=== PATIENT | female | born 1960 | race African-American/Black ===

== ENCOUNTER 2023-05-06 08:00 | Emergency (ER) | payer OTHER, SELFPAY ==
[2023-05-06 08:11] VITALS: BP 150/82; PULSE 90; RESP 18; TEMP 36.8; O2SAT 100; BMI 45.9
--- NOTE | 2023-05-06 08:36 | ED.EXTPRO1 ---
HPI - Extremity Problem General Chief complaint: Extremity Problem, Nontraumatic Stated complaint: Lower Pain Time Seen by Provider: 05/06/23 08:16 Source: patient Mode of arrival: walk-in Limitations: no limitations History of Present Illness HPI Narrative: Patient is here for evaluation of right ankle foot and leg pain. She is currently under the care of a rn clinical appeals in [facility]. She was advised to initiate a Medrol dose pack earlier this week but has not done so. She wanted make sure her leg was okay. She has had rheumatoid arthritis for at least 10 years. She had been doing very good but one of the Biologics she was taking was causing some problems with her kidney so the kidney doctor advised her to DC that arthritis medication since that time now she has been having more flareups in both her hands and her feet. There is no new trauma or injury. She is not running a fever. She has no circulatory compromise that she is aware of she has not had previous DVT. The pain is primarily over her medial longitudinal arch of her right foot and then a little bit in her hands and sometimes in her back when she walks a lot. Otherwise there is no new complaint chest pain or difficulty breathing. She could not really explain why she did not initiate the steroids at the recommendation of her physician who advised them. Related Data Allergies Allergy/AdvReac Type Severity Reaction Status Date / Time Sulfa (Sulfonamide Allergy Unknown Verified 05/06/23 08:11 Antibiotics) Exam Narrative Exam Narrative: Awake alert very pleasant oriented x 3 cognition is normal vital signs are stable slight elevation of her blood pressure. Problem focused examination Examination of her right lower leg shows no evidence of ropiness swelling or phlebitis. Strong pulses are noted. Her discomfort is over the medial longitudinal arch where she has a [id number] pain patch at this time. Capillary fill is good. The ankle joint itself is not really swollen or tender. She does not have any pain in her knee joint. The skin and integument are normal with no cyanosis petechiae or purpura. Constitutional Vital Signs, click to edit/add: Last Vital Signs Temp 98.2 F 05/06/23 08:11 Pulse 90 05/06/23 08:11 Resp 18 05/06/23 08:11 BP 150/82 H 05/06/23 08:11 Pulse Ox 100 05/06/23 08:11 O2 Del Method Room Air 05/06/23 08:11 Course Vital Signs Vital signs: Vital Signs Temperature 98.2 F 05/06/23 08:11 Pulse Rate 90 05/06/23 08:11 Respiratory Rate 18 05/06/23 08:11 Blood Pressure 150/82 H 05/06/23 08:11 Pulse Oximetry 100 05/06/23 08:11 Oxygen Delivery Method Room Air 05/06/23 08:11 Temperature 98.2 F 05/06/23 08:11 Pulse Rate 90 05/06/23 08:11 Respiratory Rate 18 05/06/23 08:11 Blood Pressure 150/82 H 05/06/23 08:11 Pulse Oximetry 100 05/06/23 08:11 Oxygen Delivery Method Room Air 05/06/23 08:11 MDM - Extremity (Nontraumatic) MDM Narrative Medical decision making narrative: This patient is a nondiabetic under the care of both her primary care doctor and rn clinical appeals which she has been in contact with very recently. She also sees a cable layer and they are trying to coordinate her care to manage her rheumatoid arthritis. I encouraged her to initiate the medication that the previous doctor's advice. She is requesting something for pain I told her that we could use something for nighttime pain only on a very limited basis. Discharge Plan Discharge Chief Complaint: Extremity Problem, Nontraumatic Clinical Impression: Polyarthritis Patient Disposition: Home, Self-Care Time of Disposition Decision: 08:40 Additional Instructions: Start the steroids immediately. May use Platina at nighttime for pain only. Follow-up with your rn clinical appeals as needed Stand Alone Forms: Portal Instructions Referrals: GERRY OCONNOR [Primary Care Provider] - 1 week
== END 2023-05-06 08:47 | disposition home or self-care (01) ==
PROVIDERS: Emergency Provider Emergency Medicine Emergency Medical Services
DX: M25.50 Pain in unspecified joint (principal); M06.9 Rheumatoid arthritis, unspecified
CPT/HCPCS: 99283

== ENCOUNTER 2025-03-05 22:52 | Emergency (ER) | payer OTHER, SELFPAY ==
--- OUTSIDE RECORDS SUMMARY | 2024-10-24 06:00 | XMS_ITS ---
Author Organization [facility] Address [address] [place], [place] [id number] Care Team Providers Care Primary Care Sales Representative Name Role Phone Thalia Escalante Primary Care Provider Ana Maria Omer Unavailable [phone] REASON FOR VISIT HTN, Afib Social History Sex Assigned At : Social History Observation Description Sex Assigned At Female Encounters Encounter Location Date Provider Diagnosis East [address] [place] [id number] 10/24 Ana Maria Omer Plan Of Treatment Next Appt Details Provider Name:Thalia diallo, 04/10/2025 08:45:00 AM, [address] [place] [address], [phone], Provider Name:Jillian diallo, 07/15/2025 08:45:00 AM, [address] [place] [address], [phone], Progress Notes * Anne Marie TURNER CDOB:[birth year] (64 yo F)Acc No.[id number]:10/24/2024 Medical Note Patient: Sandy Anne Marie wood :Rios OmerDOB:1960???Age:64 Y???Sex:Female Date:10/24/2024Phone:[phone]:[address], [place], [id number]:Thalia Escalante Subjective: * Chief Complaints: * H TN, Afib * Electronic signature of ARIS Nina on 03/06/2025 at 12:55 AM ESTSign off status: Pending * Provider: Meredith Omer Date: 0 10/24/2024 Generated for Printing/Faxing/eTransmitting on:?03/06/2025 12:55 AM EST
--- OUTSIDE RECORDS SUMMARY | 2025-02-20 14:00 | XMS_ITS | Encounter Summary ---
Author Organization [facility] Address [address] [place] [address] Care Team Providers Care Edging Supervisor Name Role Phone Escalante, Thalia SALAS-MARC Unavailable [phone] Reason for Visit * ReasonCommentsFoot SwellingPT presents today for swelling in BLLE, she states another dr told her poor blood circulation and numbness and tingling. Daughter is present today. Has been ongoing since July, she believes it is fromthe oral FurosemideSS: 11 * Consultation (Routine) - ClosedSpecialtyDiagnoses / ProceduresReferred By ContactReferred To ContactPodiatry Diagnoses Localized edema Procedures [facility] Thalia Escalante APRN-CNP fax: Mylene Zepeda DPM [address] [place] [address] Phone: tel: fax: Referral IDStatusReasonStart DateExpiration DateVisits RequestedVisits [id number] Specialty Services Required / Encounter Details DateTypeDepartmentCare Team (Latest Contact Info)Elowujrulxo55/11/2025 2:00 PM ESTOffice Visit [facility] [address] [place] [phone] Mylene Zepeda DPM [address] [place], [place] [phone] Venous insufficiency of lower extremity (Primary Dx); Peripheral autonomic neuropathy of unknown cause; Pain in both feet; Onychomycosis Social History Tobacco UseTypesPacks/DayYears UsedDateSmoking Tobacco: NeverSmokeless Tobacco: Never Tobacco Cessation:Counseling Given: Not Answered CommentsUnknownSex and Gender InformationValueDate RecordedSex Assigned at BirthNot on fileLegal QjcVtzvrs36/15/2023 6:44 PM EDTGender IdentityNot on fileSexual OrientationNot on filedocumented as of this encounter Last Filed Vital Signs Vital SignReadingTime TakenCommentsBlood Pressure--Pulse--Temperature-- Respiratory Rate--Oxygen Saturation--Inhaled Oxygen Concentration--Udcgjq626 kg (298 lb)02/20/2025 2:21 PM EACQfjjlw109.2 cm (5' 7 )02/20/2025 2:21 PM ESTBody Mass Index46.6702/20/2025 2:21 PM ESTdocumented in this encounter Progress Notes * Mylene Zepeda DPM - 02/20/2025 2:00 PM EST Images from the original note were not included. Subjective Patient ID: Anne Marie Turner is a 64 y.o. female who presents for Foot Swelling (PT presents todayfor swelling in BLLE, she states another dr told her poor blood circulation and numbness and tingling. Daughter is present today. Has been ongoing since July, she believes it is from the oral Furosemide/SS: 11). HPI Patient presents with her daughter with multiple complaints of the lower extremity. She states she has noticed significant swelling starting in the lower extremity in May, shortly after starting furosemide. She was told to elevate and use compression stockings. She has not noticed much improvement with this. The compression stockings are painful for her. She discontinued the furosemide recentlybut has not seen any significant improvement in the swelling. She also reports pins and needles type of sensation in bilateral lower extremity that started in December. She is concerned poor circulation is causing this. The pins and needle sensation is getting in the way of her regular activity and sleeping. She states she takes multiple medications and is unsure if she would like to start a new medication at this time. Review of Systems Medications Current Medications[1] Allergies Macrolides and ketolides, Sulfa antibiotics, Tamiflu [oseltamivir], and Zithromax [azithromycin] Past Surgical History Surgical History[2] Family History Family History[3] Objective Physical Exam Cardiovascular: Comments: Pedal pulses: DP 2/4 bilateral, PT 2/4 bilateral. Skin temp is warm to warm. Varicosities: absent Hair growth: sparse Mild non pitting edema noted b/l Pulmonary: Effort: Pulmonary effort is normal. Musculoskeletal: General: No tenderness. Right lower leg: Edema present. Left lower leg: Edema present. Comments: ROM: AJ and STJ ROM are normal and pain free. MUSCLE STRENGTH: 5/5 for dorsiflexion, plantarflexion, inversion, eversion. PAIN: generalized pain due to neuropathy and swelling Skin: General: Skin is warm. Capillary Refill: Capillary refill takes 2 to 3 seconds. Findings: No bruising or erythema. Comments: SKIN FINDINGS: Skin is dry. Webspaces are clean and dry. Skin turgor diminished. NAIL PATHOLOGY: multiple nails are fungal Neurological: Mental Status: She is alert and oriented to person, place, and time. Comments: Light touch sensation intact Vibratory sensation: Absent IPJ bilaterally, diminished at medial malleolus and patella bilaterally Hamilton Emmanuel monofilament: absent at 10/10 sites bilaterally Psychiatric: Mood and Affect: Mood normal. Behavior: Behavior normal. Assessment/Plan ICD-10-CM 1. Venous insufficiency of lower extremity I87.2 2. Peripheral autonomic neuropathy of unknown cause G90.09 3. Pain in both feet M79.671 M79.672 4. Onychomycosis B35.1 Patient was examined and evaluated. Discussed the clinical findings with the patient and her daughter today. I assured her that her peripheral pulses were readily palpable, that she did not have arterial disease. Reviewed that the swelling she is having in bilateral lower extremities may be due to the medication but also could be due, in part, to venous insufficiency. Patient would like to see how she does after being off of the furosemide for a longer period of time. Discussed the findings of her neurologic exam and that the burning/tingling/numbness sensation may be idopathic neuropathy. Reviewed the common causes of peripheral neuropathy with her. Discussed that there is extensive lab work along with neuro referral and NCV testing that could be done to try todetermine a cause, but that 30-40% of pts with neuropathy, the cause remains unknown. Discussed treatment options of Lyrica vs Neurontin vs Metanx. Reviewed that with Lyrica, Neurontin, and Metanx, they should be taken for at least 90 days to determine effectiveness and Lyrica/Neurontin dose can be increased if needed. Also reviewed more alternative treatments such as CBD oil. Patient would like to try CBD oil 1st, information was dispensed on how to take this and where to obtain it. If she does not notice any improvement with the CBD oil, she would like to have Neurontin at home to try. We discussed starting her at the lowest dose possible and reviewing all of her medications with her pharm acist before she starts this to review possible negative side effects or interactions with other medications. ERX Neurontin 100mg TID If treatment with this is unsuccessful, option to try other medication or referral to neurologist. At the end of the appointment, pt's daughter asked if pt could have her nails trimmed. RTO March fornail care and follow up of neuropathy after CBD oil and possibly Neurontin. This note was created with the assistance of a speech recognition program. While intending to generate a timely document that accurately reflects the content of the visit, no guarantee can be provided that every grammatical or spelling mistake has been or will be identified or corrected. Thank you for your understanding. Mylene Zepeda DPM [1] Current Outpatient Medications: apixaban (Eliquis) 5 MG tablet, Take 5 mg by mouth in the morning and 5 mg before bedtime., Disp: ,Rfl: carvedilol (Coreg) 12.5 MG tablet, Take by mouth in the morning and in the evening. Take with meals., Disp: , Rfl: cetirizine (ZyrTEC) 10 MG tablet, Take by mouth, Disp: , Rfl: flecainide (Tambocor) 100 MG tablet, Take by mouth, Disp: , Rfl: fluticasone (Flonase) 50 MCG/ACT nasal spray, Administer 1 spray into each nostril Daily Shake gently. Before first use, prime pump. After use, clean tip and replace cap., Disp: , Rfl: folic acid (Folvite) 1 MG tablet, Take by mouth Daily, Disp: , Rfl: furosemide (Lasix) 40 MG tablet, Take by mouth, Disp: , Rfl: hydroxychloroquine (Plaquenil) 200 MG tablet, Take by mouth, Disp: , Rfl: lidocaine (Lidoderm) 5 % patch, Apply 1 patch topically Daily Remove & discard patch within 12 hours or as directed by MD., Disp: , Rfl: pantoprazole (ProtoNix) 40 MG EC tablet, Take 40 mg by mouth in the morning. Take before meals. Do not crush, chew, or split., Disp: , Rfl: [2] Past Surgical History: Procedure Laterality Date CT ANGIOGRAM HEART CORONARY 02/18/2019 CT ANGIOGRAM TAVR 02/18/2019 CT ANGIOGRAM HEART CORONARY 01/10/2019 CT ANGIOGRAM TAVR 01/10/2019 LEG SURGERY Right 12yo TONSILLECTOMY [3] Family History Problem Relation Name Age of Onset Heart disease Mother documented in this encounter Plan of Treatment DateTypeDepartmentCare Team (Latest Contact Info)Pdajrszchqo81/19/2026 9:30 AM EDTProcedure Visit [facility] [address] [place] [phone] Mylene Zepeda DPM [address] [place], [place] [phone] documented as of this encounter Visit Diagnoses Diagnosis Venous insufficiency of lower extremity- Primary Peripheral autonomic neuropathy of unknown cause Idiopathic peripheral autonomic neuropathy, unspecified Pain in both feet Onychomycosis Dermatophytosis of nail documented in this encounter Care Teams Team MemberRelationshipSpecialtyStart DateEnd Date Thalia Escalante APRN-SHOES SALESPERSON Nurse PractitionerFamily Vhkvhtph90/11/25documented as of this encounter
--- OUTSIDE RECORDS SUMMARY | 2025-02-27 10:30 | XMS_ITS ---
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 Name Role Phone Hanna Escalantegail Primary Care Provider Allergies Allergen (clinical drug ingredient) Drug/Non Drug Allergy documented on EMR Reaction Allergy Type Onset Date Status SEASONAL ALLERGIES (uncoded)UnknownAllergyActivesulfadiazinesulfADIAZINE Anaphylaxis , HivesDrug AllergyActiveoseltamivirTamifluAnaphylaxisDrug Allergy ActiveazithromycinZithromaxAnaphylaxisDrug AllergyActiveoseltamivirOseltamivir UnknownDrug AllergyActive REASON FOR VISIT cough Medications Medication SIG (Take, Route, Frequency, Duration) Notes Start Date End Date Status Amoxicillin-Pot Clavulanate 500-125 MG T ablet 1 tablet Orally every 12 hrs; Duration: 7 days 5ActiveMedical Compression Socks - Miscellaneousas jnnesnuv56/09/2025 ActiveFerrous Sulfate 325 (65 Fe) MG Tablet Delayed Release1 tablet Orally daily; Duration: 30 days5ActivePolyethylene Glycol 3350 17 GM/SCOOP Powder1 scoop mixed with 8 ounces of fluid Orally Once a day; Duration: 30 days ActiveEliquis 5 MG Tablet1 Tablet Oral twice daily; Duration: 90 daysActive Furosemide 20 MG Tablet1 tablet Orally Once a day; Duration: 30 daysActive guaiFENesin ER 600 MG Tablet Extended Release 12 Hour1 tablet as needed Orally every 12 hrs; Duration: 10 days5ActivePantoprazole Sodium 40 MG Tablet Delayed Release1 TABLET 1/2 TO 1 HOUR BEFORE MORNING MEAL ORALLY ONCE A DAY 90 DAYS Orally Once a day; Duration: 90 daysActiveCarvedilol 12.5 MG Tablet1 tablet with food Orally Twice a day; Duration: 90 daysActiveLeflunomide 20 MG Tablet1 tablet Orally Once a dayActiveLidocaine Pain Relief 4 % Patch1 patch as needed Externally Four times a dayActiveFlecainide Acetate 100 MG Tablet0.5 tablet Orally every 12 hrsActiveFolic Acid 1 MG TabletTAKE 1 TABLET BY MOUTH EVERY DAY FOR 30 DAYS; Duration: 90ActiveCetirizine HCl 10 MG TabletTAKE 1 TABLET BY MOUTH EVERY DAY FOR 90 DAYS; Duration: 30 daysActiveFluticasone Furoate 50 MCG/ACT Aerosol Powder Breath Activated1 puff Inhalation Once a dayfloventActiveMucinex 600 MG Tablet Extended Release 12 Hour1 tablet as needed Orally every 12 hrs; Duration: 14 days5ActivepredniSONE 20 MG Tablet1 tablet with food or milk Orally Once a day; Duration: 5 days5Active Social History Sex Assigned At : Social History Observation Description Sex Assigned At Female Social History Sexual History:Social InfoQuestionAnswerNotesFamily PlanningAre you or your partner planning on becoming in the next year if not already ? No Vital Signs Temperature 98.1 degrees Fahrenheit 02/28/20 25 Blood pressure systolic 187 mm Hg 02/28/20 25 Blood pressure diastolic 99 mm Hg 025 Heart Rate 88 /min 02/27/2025 Height 67 in 02/27/2025 Weight 289 lbs 02/27/2025 BMI 45.26 kg/m2 02/27/2025 Oximetry 93 % 02/27/2025 Height-cm 170.18 cm 02/27/2025 Weight-kg 131.09 kg 02/27/2025 Natasha Marie 02/27/2025 03:34:34 PM EST > Encounters Encounter Location Date Provider Diagnosis [address] [id number] 02/27/2025 Thalia Escalante Bronchitis J40 Assessments Encounter Date Diagnosis (ICD Code) Assessment Notes Treatment Notes Treatment Clinical Notes Section Notes 02/27/2025 Bronchitis (ICD-10 - J40) Decreased dose for kidney failure and decreased CrCl. Immunocompromised, will start antibiotic, take as prescribed Start prednisone and mucinex Discussed course/duration of illness, symptoms can last from 10-14 days. Patient encouraged to increase fluid intake, warm salt water gargles, cool moist mist. Drink plenty of water and rest when able. Advised to take Tylenol and/or Ibuprofen as needed Advised to wash hands often & disinfect surfaces. Discussed reassuring vs non reassuring signs related to infection and when to RTC or go to the ER. F/U PRN Plan Of Treatment Medication Medication Name Sig Start Date Stop Date Notes Amoxicillin-Pot Clavulanate 500-125 MG Tablet 1 tablet Orally every 12 hrs; Duration: 7 days 02/27/2025 Mucinex 600 MG Tablet Extended Release 12 Hour1 tablet as needed Orally every 12 hrs; Duration: 14 days02/27/2025predniSONE 20 MG Tablet1 tablet with food or milk Orally Once a day; Duration: 5 days02/27/2025Treatment Notes Assessment Notes Bronchitis Decreased dose for kidney failure and decreased CrCl. Immunocompromised, will start antibiotic, take as prescribed Start prednisone and mucinex Discussed course/duration of illness, symptoms can last from 10-14 days. Patient encouraged to increase fluid intake, warm salt water gargles, cool moist mist. Drink plenty of water and rest when able. Advised to take Tylenol and/or Ibuprofen as needed Advised to wash hands often & disinfect surfaces. Discussed reassuring vs non reassuring signs related to infection and when to RTC or go to the ER. F/U PRN Next Appt Details Follow Up: keep next appoint ment, Reason: Provider Name:Thalia diallo, 04/10/2025 08:45:00 AM, [address], [place], [phone], Provider Name:Jillian diallo, 07/15/2025 08:45:00 AM, [address] [place] [address], [phone], History and Physical Notes * HPI (History of Present Illness) CategorySub-CategoryDetailNotesCategory NotesInterim History A 64 year old non-productive cough, sore throat, runny nose, body aches, fatigue, left chest pain under ribs when coughing, started last week. Unsure of fevers. No history of asthma or COPD Has not taken anything at home. Patient is immunocompromised with decreased WBC. Examination CategorySub-CategoryDetailNotesCategory NotesGeneral ExaminationEars:both ears, tympanic membrane dull General appearance: alert, pleasant, well-nourished and in no acute distress. Head: normocephalic, atraumatic. Eyes: pupils equal, round, reactive to light. Heart: regular rate and rhythm without murmurs, gallops, clicks or rubs. Lungs: clear to auscultation bilaterally, with good air movement and no rales, rhonchi or wheezes. Psych: alert and oriented x 3, cooperative with exam, maintains good eye contact. Skin: No rashes. 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 Unsure of fevers. No history of asthma or COPD ?Has not taken anything at home. Patient is immunocompromised with decreased WBC. * ROS: ???Positive and negative as described above in the HPI. * Medical History: Allergic rhinitis Chronic kidney disease, stage III (moderate) COVID-19 virus GERD (gastroesophageal reflux disease) Hypertension Obesity Rheumatoid arthritis Mass of Mediastinum Medical History Verified? 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 * OB History: ??? History:?Total pregnancies:?5 ?Full-term pregnancies:?5 ?Pre-term pregnancies?0 ?Ectopic pregnancies:?0 ?AB Induced:?0 ?AB Spontaneous:?0 ?Total living children:?5 ?Multiple births:?0 * Surgical History: Right Leg Surgery ? Surgical History verified.? * Hospitalization/Major Diagno stic Procedure: pneumonia 2019? AFib 05/24/24? Hospitalization Verified.? * Family History: F ather: . M other: , diagnosed with Hypertension. P aternal Grand Father: . P aternal Grand Mother: . M aternal Grand Father: . M aternal Grand Mother: . B rother: alive, diagnosed with Hypertension. S ister: , HIV. 7 brother(s) , 2 sister(s) . . F amily History Verified.. * Social History: ???Sexual History:?Family Planning?Are you or your partner planning on becoming in the next year if not already ??No ???Social History Verified. * Medications: T akingFluticasone Furoate 50 MCG/ACT Aerosol Powder Breath Activated 1 puff Inhalation Once a day , Notes to Pharmacist: floventLeflunomide 20 MG Tablet 1 tablet Orally Once a day Flecainide Acetate 100 MG Tablet 0.5 tablet Orally every 12 hrs Lidocaine Pain Relief 4 % Patch 1 patch as needed Externally Four times a day Cetirizine HCl 10 MG Tablet TAKE 1 TABLET BY MOUTH EVERY DAY FOR 90 DAYS Folic Acid 1 MG Tablet TAKE 1 TABLET BY MOUTH EVERY DAY FOR 30 DAYS Carvedilol 12.5 MG Tablet 1 tablet with food Orally Twice a day Pantoprazole Sodium 40 MG Tablet Delayed Release 1 TABLET 1/2 TO 1 HOUR BEFORE MORNING MEAL ORALLY ONCE A DAY 90 DAYS Orally Once a day Furosemide 20 MG Tablet 1 tablet Orally Once a day Eliquis 5 MG Tablet 1 Tablet Oral twice daily guaiFENesin ER 600 MG Tablet Extended Release 12 Hour 1 tablet as needed Orally every 12 hrs Medical Compression Socks - Miscellaneous as directed Polyethylene Glycol 3350 17 GM/SCOOP Powder 1 scoop mixed with 8 ounces of fluid Orally Once a day Ferrous Sulfate 325 (65 Fe) MG Tablet Delayed Release 1 tablet Orally daily , Notes: nephrology would like iron increased to dailyTaking Fluticasone Furoate 50 MCG/ACT Aerosol Powder Breath Activated 1 puff Inhalation Once a day , Notes to Pharmacist: floventTaking Leflunomide 20 MG Tablet 1 tablet Orally Once a day Taking Flecainide Acetate 100 MG Tablet 0.5 tablet Orally every 12 hrs Taking Lidocaine Pain Relief 4 % Patch 1 patch as needed Externally Four times a day Taking Cetirizine HCl 10 MG Tablet TAKE 1 TABLET BY MOUTH EVERY DAY FOR 90 DAYS Taking Folic Acid 1 MG Tablet TAKE 1 TABLET BY MOUTH EVERY DAY FOR 30 DAYS Taking Carvedilol 12.5 MG Tablet 1 tablet with food Orally Twice a day Taking Pantoprazole Sodium 40 MG Tablet Delayed Release 1 TABLET 1/2 TO 1 HOUR BEFORE MORNING MEAL ORALLY ONCE A DAY 90 DAYS Orally Once a day Taking Furosemide 20 MG Tablet 1 tablet Orally Once a day Taking Eliquis 5 MG Tablet 1 Tablet Oral twice daily Taking guaiFENesin ER 600 MG Tablet Extended Release 12 Hour 1 tablet as needed Orally every 12 hrs Taking Medical Compression Socks - Miscellaneous as directed Taking Polyethylene Glycol 3350 17 GM/SCOOP Powder 1 scoop mixed with 8 ounces of fluid Orally Once a day Taking Ferrous Sulfate 325 (65 Fe) MG Tablet Delayed Release 1 tablet Orally daily , Notes: nephrology would like iron increased to dailyDiscontinuedGabapentin 100 MG Capsule Oral , Notes to Pharmacist: not takingpredniSONE 10 MG Tablet 1 tablet with food or milk Orally Once a day Cefuroxime Axetil 500 MG Tablet 1 tablet Orally every 12 hrs Hydroxychloroquine Sulfate 200 MG Tablet TAKE 1 TABLET BY MOUTH TWICE A DAY Oral twice a day Sodium Bicarbonate 650 MG Tablet TAKE 1 TABLET BY MOUTH TWICE A DAY FOR 30 DAYS guaiFENesin ER 600 MG Tablet Extended Release 12 Hour 1 tablet as needed Orally every 12 hrs , Notes to Pharmacist: duplicateMedication List reviewed and reconciled with the patientDiscontinued Gabapentin 100 MG Capsule Oral , Notes to Pharmacist: not takingDiscontinued predniSONE 10 MG Tablet 1 tablet with food or milk Orally Once a day Discontinued Cefuroxime Axetil 500 MG Tablet 1 tablet Orally every 12 hrs Discontinued Hydroxychloroquine Sulfate 200 MG Tablet TAKE 1 TABLET BY MOUTH TWICE A DAY Oral twice a day Discontinued Sodium Bicarbonate 650 MG Tablet TAKE 1 TABLET BY MOUTH TWICE A DAY FOR 30 DAYS Discontinued guaiFENesin ER 600 MG Tablet Extended Release 12 Hour 1 tablet as needed Orally every 12 hrs , Notes to Pharmacist: duplicateMedication List reviewed and reconciled with the patient * Allergies: S EASONAL ALLERGIES: AllergysulfADIAZINE: Anaphylaxis , Hives - AllergyTamiflu: Anaphylaxis - AllergyZithromax: Anaphylaxis - AllergyOseltamiviryesAllergies Verified. Objective: * Vitals: T emp:98.1F, Wt:289lbs, Ht: 67 in, BMI:45.26Index, BP:187/99mm Hg,170/97 mm Hg, HR:88/min, Pain scale:51-10, Oxygen sat %:93%, Wt-k.09 kg, Ht-cm: 170.18 cm, Body Surface Area: 2.49. Natasha Marie 02/27/2025 03:34:34 PM EST >. * Examination: ???CQM Exceptions: ?Currently taking Aspirin:? Aspirin Use:?No?General Examination: ?Ears:?both ears, tympanic membrane dull.?Nose:?clear discharge, turbinates red and swollen, mild congestion.?Oral cavity:?mucosa moist.?Throat:?post nasal drip.?Lymph nodes:?no cervical lymphadenopathy.?General appearance: alert, pleasant, well-nourished and in no acute distress. Head: normocephalic, atraumatic. Eyes: pupils equal, round, reactive to light. Heart: regular rate and rhythm without murmurs, gallops, clicks or rubs. Lungs: clear to auscultation bilaterally, with good air movement and no rales, rhonchi or wheezes. Psych: alert and oriented x 3, cooperative with exam, maintains good eye contact. Skin: No rashes. Assessment: * Assessment: 1.?Bronchitis - J40 (Primary)??? Plan: * Treatment: Start Mucinex Tablet Extended Release 12 Hour, 600 MG, 1 tablet as needed, Orally, every 12 hrs, 14days, 28 Tablet, Refills 0;?Start predniSONE Tablet, 20 MG, 1 tablet with food or milk, Orally, Once a day, 5 days, 5, Refills 0;?Start Amoxicillin-Pot Clavulanate Tablet, 500-125 MG, 1 tablet, Orally, every 12 hrs, 7 days, 14 Tablet, Refills 0.?? Notes: Decreased dose for kidney failure and decreased CrCl. Immunocompromised, will start antibiotic, take as prescribed Start prednisone and mucinex Discussed course/duration of illness, symptoms can last from 10-14 days. Patient encouraged to increase fluid intake, warm salt water gargles, cool moist mist. Drink plenty of water and rest when able. Advised to take Tylenol and/or Ibuprofen as needed Advised to wash hands often & disinfect surfaces. Discussed reassuring vs non reassuring signs related to infection and when to RTC or go to the ER. F/U PRN??? * Procedure Codes: 3 077F HTN SYST BP >= [id number] HTN DIAST BP >= 90 * Follow Up: k eep next appointment Billing Information: * Visit Code: 70363 Office Visit Est 20-29 minutes. * Procedure Codes: 3077F HTN SYST BP >= 140. 3080F HTN DIAST BP >= 90. * Sign off status: Completed true * Provider: Shai Escalante APRN, FNP-C Date: 04/30/2024 Generated for Printing/Faxing/eTransmitting on:?03/06/2025 12:56 AM EST
[2025-03-05 23:31] VITALS: BP 204/115; PULSE 70; TEMP 36.7; O2SAT 100; BMI 46.7
[2025-03-06] VITALS (17 sets, daily range): BP systolic 127–221; BP diastolic 78–105; PULSE 65–90
--- NOTE | 2025-03-06 00:13 | ED.GENADUL1 ---
HPI HPI - General Adult General Chief complaint: Headache Stated complaint: Lower Pain Time Seen by Provider: 03/06/25 00:06 Source: patient Mode of arrival: Wheelchair Limitations: no limitations History of Present Illness HPI narrative: patient has history of A. fib, periperal neuropathy of her feet and HTN. she was taking CBD oil for her neuropathy but it did not help. States she was prescribed Neurontin for her neuropathy. She was uncertain about taking it and decided to come to the ER to see if it was ok to take it. She Has known hypertension. Just finished eating bag of chips in the lobby. Her BP is elevated. Has mild headache. No chest pain or dyspnea Related Data Home Medications ?Medication ?Instructions ?Recorded ?Confirmed atorvastatin 10 mg tablet 10 mg PO DAILY 05/06/23 05/06/23 losartan 100 mg tablet 100 mg PO DAILY 05/06/23 05/06/23 metformin 500 mg tablet,extended 500 mg PO BID 05/06/23 05/06/23 release 24 hr montelukast 10 mg tablet 10 mg PO DAILY 05/06/23 05/06/23 oxcarbazepine 300 mg tablet 300 mg PO Q24H 05/06/23 05/06/23 pantoprazole 40 mg tablet,delayed 40 mg PO Q12H 05/06/23 05/06/23 release paroxetine HCl 30 mg tablet 30 mg PO DAILY 05/06/23 05/06/23 primidone 50 mg tablet 100 mg PO Q24H 05/06/23 05/06/23 spironolactone 25 mg tablet 25 mg PO DAILY 05/06/23 05/06/23 Allergies Allergy/AdvReac Type Severity Reaction Status Date / Time Sulfa (Sulfonamide Allergy Mild Rash Verified 03/05/25 23:36 Antibiotics) Opioid HPI Opioid Management Most Recent Opioid Data: Last Pain Scale 10 03/05/25, 23:36 Review of Systems ROS Status of ROS 10 or more systems reviewed and unremarkable except as noted in history and below PFSH PFSH Social History Little interest or pleasure in doing things: not at all Feeling down, depressed, or hopeless: not at all Exam Constitutional Vital Signs, click to edit/add: Last Vital Signs Temp 98.0 F 03/05/25 23:31 Pulse 86 03/06/25 02:50 Resp 15 03/06/25 02:50 BP 127/78 03/06/25 02:31 Pulse Ox 100 03/05/25 23:31 O2 Del Method Room Air 03/05/25 23:31 Common normals: no apparent distress, average body habitus, oriented x3, no limitations, healthy appearing, alert and well nourished [facility] Common normals: normocephalic and head/scalp atraumatic Eye Common normals: EOMs intact bilaterally and conjunctivae normal Respiratory Common normals: normal respiratory effort, no retractions, no use of accessory muscles and clear to auscultation bilaterally Cardio Common normals: regular rate, regular rhythm, S1 normal heart sound and S2 normal heart sound Extremity Common normals: normal to inspection and full ROM Neuro Common normals: oriented x3, CN's II-XII intact bilaterally and moves all extremities Psych Appearance: grossly normal Course Vital Signs Vital signs: Vital Signs Temperature 98.0 F 03/05/25 23:31 Pulse Rate 70 03/05/25 23:31 Respiratory Rate 18 03/05/25 23:31 Blood Pressure 204/115 H 03/05/25 23:31 Pulse Oximetry 100 03/05/25 23:31 Oxygen Delivery Method Room Air 03/05/25 23:31 Temperature 98.0 F 03/05/25 23:31 Pulse Rate 86 03/06/25 02:50 Respiratory Rate 15 03/06/25 02:50 Blood Pressure 127/78 03/06/25 02:31 Pulse Oximetry 100 03/05/25 23:31 Oxygen Delivery Method Room Air 03/05/25 23:31 Medical Decision Making [facility] Narrative Medical decision making narrative: patient presents with peripheral neuropathy and asking if it is ok to start neurontin prescribed by her PCP. found to have elevated BP that was treated successfully in the department . troponin neg. Does have elevated creat and GFR likely related to her uncontrolled HTN. Discharged to follow up with her family doctor. given dose of neurontin here in the department which she tolerated well without side effects. Advised to start the neurotin prescribed and to follow up for recheck of her BP Lab Data Labs: Lab Results 03/06/25 Range/Units 01:05 WBC 4.4 (4.0-11.0) 10^3/uL RBC 4.29 (4.20-5.40) 10^6/uL Hgb 10.4 L (12.0-16.0) g/dL Hct 34.4 L (36.0-48.0) % MCV 80.2 L (81.0-99.0) fL MCH 24.2 L (26.7-34.0) pg MCHC 30.2 (29.9-35.2) g/dL RDW 17.2 H (11.0-15.0) % Plt Count 191 (150-450) 10^3/uL MPV 11.2 (9.5-13.5) fL Neut % (Auto) 72.4 (43.0-75.0) % Lymph % (Auto) 17.4 L (20.5-60.0) % Clay % (Auto) 7.7 (1.7-12.0) % Eos % (Auto) 2.3 (0.9-7.0) % Baso % (Auto) 0.0 L (0.2-2.0) % Neut # (Auto) 3.2 (1.4-6.5) 10^3/uL Lymph # (Auto) 0.8 L (1.2-3.8) 10^3/uL Clay # (Auto) 0.3 (0.3-0.8) 10^3/uL Eos # (Auto) 0.1 (0.0-0.7) 10^3/uL Baso # (Auto) 0.0 (0.0-0.1) 10^3/uL Abs Immat Gran (auto) 0.01 (0.00-0.03) 10^3/uL Imm/Tot Granulo (auto) 0.2 (0.0-0.5) % Sodium 142 (136-145) mmol/L Potassium 4.1 (3.5-5.1) mmol/L Chloride 110 H (98-107) mmol/L Carbon Dioxide 22.8 (21.0-32.0) mmol/L Anion Gap 13.3 BUN 28.0 H (7.0-18.0) mg/dL Creatinine 2.26 H (0.55-1.02) mg/dL Est GFR ( Amer) 26 L (>=60 mL/min/1.73m^2) Est GFR (Non-Af Amer) 22 L (>=60 mL/min/1.73m^2) BUN/Creatinine Ratio 12.4 Glucose 93 (74-106) mg/dL Calcium 9.4 (8.5-10.1) mg/dL Troponin I High Sens 15.4 (4.0-51.3) pg/mL Discharge Plan Discharge Chief Complaint: Headache Clinical Impression: Hypertensive urgency, Peripheral neuropathy Patient Disposition: Home, Self-Care Prescriptions / Home Meds: No Action atorvastatin 10 mg tablet 10 mg PO DAILY pantoprazole 40 mg tablet,delayed release (DR/EC) 40 mg PO Q12H montelukast 10 mg tablet 10 mg PO DAILY metformin 500 mg tablet extended release 24 hr 500 mg PO BID paroxetine HCl 30 mg tablet 30 mg PO DAILY primidone 50 mg tablet 100 mg PO Q24H Rx Instructions: administer on days 4, 5, and 6 of therapy spironolactone 25 mg tablet 25 mg PO DAILY oxcarbazepine 300 mg tablet 300 mg PO Q24H losartan 100 mg tablet 100 mg PO DAILY Print Language: Lithuanian Instructions: Peripheral Neuropathy (ED), Hypertensive Crisis (ED) Referrals: GERRY OCONNOR [Primary Care Provider] - 1 week Discharge Date/Time: 03/06/25 03:20
--- NOTE | 2025-03-06 00:18 | ECG_ITS ---
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 Measurements Intervals [place] Rate: 81 P: 35 MA: 170 QRS: 70 QRSD: 86 T: 35 QT: 348 QTc: 385 Interpretive Statements 1100 Sinus rhythm 4068 Nonspecific Twave abnormality Abnormal ECG No previous ECG available for comparison Electronically Signed On 03-06-2025 7:57:00 EST by NICK MIGUEL M.D.
--- OUTSIDE RECORDS SUMMARY | 2025-03-06 00:56 | XMS_ITS | Patient Health Record ---
Author Organization [facility] in [place] Address [address] [place] [address] Care Team Providers Care Gis Specialist Name Role Phone Mauricio LOPEZ, Zaynab Primary Care Provider Ariadna Rodriguez [phone] Allergies Allergen (clinical drug ingredient) Drug/Non Drug Allergy documented on EMR Reaction Allergy Type Onset Date Status azithromycin Azithromycin Unknown Drug Allergy ActiveSulf-10UnknownDrug AllergyActive Results Component Value Reference Range Notes CBC AND AUTO DIFF Reviewed date:09/02/2024 09:46:08 AM Interpretation: Performing Lab: Notes/Report: WBC 5.3 4-11 x10E9/L RBC COUNT3.813.8-5.2 X10E12/XRSQTRVTGFI93.111.7-15.5 g/yCACBDXAZBLH33.535-47 % OMA0312-023 fLMCH26.527-34 jlLNLQ85.032-36 g/dLRDW18.811.5-15 %PLATELET BGFVM405 150-450 X10E9/LMPV9.37-12 fLNEUTROPHILS RELATIVE PERCENT BY AUTOMATED COUNT67.9 LYMPHOCYTES RELATIVE PERCENT BY AUTOMATED COUNT24.9MONOCYTES RELATIVE PERCENT BY AUTOMATED COUNT6.3EOSINOPHILS RELATIVE PERCENT BY AUTOMATED COUNT0.7BASOPHILS RELATIVE PERCENT BY AUTOMATED COUNT0.2NEUTROPHILS ABSOLUTE COUNT BY AUTOMATED COUNT3.61.5-6.6 10*3/uLLYMPHOCYTES ABSOLUTE COUNT (10*3/UL) BY AUTOMATED COUNT 1.31.0-3.5 10*3/uLMONOCYTES ABSOLUTE COUNT (10*3/UL) BY AUTOMATED COUNT0.30.0- 0.9 10*3/uLEOSINOPHILS ABSOLUTE COUNT (10*3/UL) BY AUTOMATED COUNT0.00.0-0.4 10*3/uLBASOPHILS ABSOLUTE COUNT (10*3/UL) BY AUTOMATED COUNT0.00.0-0.2 10*3/uL CELLAVISION DIFFERENTIAL TYPEAUTOMATED DIFFERENTIAL PERFORMED AT [address], [place] [address] The copy-to physician of this order is ARIADNA Spain URINALYSIS Reviewed date:09/02/2024 02:31:43 PM Interpretation: Performing Lab: Notes/Report:COLORYellowYellow, ColorlessTURBIDITYClearClearSPECIFIC GRAVITY 1.0131.003-1.035 NANITRITENegativeNegativePH,URINE6.05.0-8.5 NALEUKOCYTE ESTERASETraceNegativePROTEINTraceNegativeKETONES (URINE)NegativeNegative UROBILINOGEN<1.1 eu/dL<1.1 eu/dLBILIRUBIN (URINE)NegativeNegativeBLOOD/HGB NegativeNegativeMUCOUSPresentNoneR.B.OSZFS15-3 NASQUAMOUS BVBOJRZJUU06-9 NA W.B.SNOWB92-3 NAGLUCOSE (URINE)NegativeNegative PERFORMED AT [address] [place] [address] PROTEIN CREAT RATIO Reviewed date:09/19/2024 12:21:59 PM Interpretation: Performing Lab: Notes/Report:URINE PROTEIN, RANDOM (MG/L)80<120 mg/LURINE CREATININE,RDM30.65 U/PRO/PROFESSOR OF KINESIOLOGY RATIO CALC0.26<=0.20 NA Nephrotic Syndrome is associated with ratios >3.5 PERFORMED AT [address], [place] [address] BMP w/GFR Reviewed date:11/25/2024 02:23:20 PM Interpretation: Performing Lab: Notes/Report:PQGENR062805-579 mmol/LPOTASSIUM4.03.5-5.0 mmol/VMHMKELKQ55638-246 mmol/LCARBON LKNRSZC5236-03 mmol/LANION JLD05-01 mmol/LBLOOD UREA VRIWHMTY840-19 mg/dLCREATININE1.780.40-1.00 mg/dLMETHOD TRACEABLE TO IDMS QOZKLWHPZEQRYQN3264- 99 mg/dLCALCIUM8.38.5-10.5 mg/dLEGFR (CKD-EPI) NON-RACE YNACJITXM98>=60 ml/min/1.73sq.m Reported eGFR is based on the CKD-EPI 2020 equation that does not use a race coefficient. PERFORMED AT [address] [place] [address] CBC (COMPLETE BLOOD COUNT) * Reviewed date:11/25/2024 08:58:18 AM Interpretation: Performing Lab: Notes/Report:WBC2.74-11 x10E9/LRBC COUNT3.603.8-5.2 X10E12/LHEMOGLOBIN8.611.7- 15.5 g/wSHVFSOYOGQR75.135-47 %THI4388-084 fLMCH23.927-34 orTFHS38.832-36 g/dLRDW 17.311.5-15 %PLATELET ITZIP721508-296 X10E9/LMPV9.47-12 fL PERFORMED AT [address] [place] [address] ALBUMIN Reviewed date:11/25/2024 08:50:19 AM Interpretation: Performing Lab: Notes/Report:ALBUMIN3.43.2-5.3 g/dL PERFORMED AT [address] [place] [address] MAGNESIUM Reviewed date:11/25/2024 08:52:03 AM Interpretation: Performing Lab: Notes/Report:MAGNESIUM1.91.8-2.6 mg/dL PERFORMED AT [address] [place] [address] FREE LIGHT CHAINS Reviewed date:11/25/2024 08:49:56 AM Interpretation: Performing Lab: Notes/Report:FREE LIDIA/LAMBD RATIO1.600.26-1.65 NAFREE KAPPA LT CHAINS6.340.33- 1.94 mg/dLFREE LAMBDA LT CHAINS3.960.57-2.63 mg/dL PERFORMED AT [address] [place] [address] URINE PROTEIN ELECTROPHORESIS Reviewed date:11/27/2024 01:41:16 PM Interpretation: Performing Lab: Notes/Report:URINE PROTEIN ELECTROPHORESIS INTERPSee Pathology Report PERFORMED AT [address] [address] VITAMIN D 25 HYD TOT Reviewed date:11/25/2024 08:50:06 AM Interpretation: Performing Lab: Notes/Report:VITAMIN D 25 HYD TOT30.230.0-100.0 ng/mL Vitamin D status 25 [place] Vitamin D Deficiency <20 ng/mL Insufficiency 20-29 ng/mL Sufficiency 30-100 ng/mL Toxicity >100 ng/mL NOTE: A pediatric reference range has not been established by the quality lab technician of this kit. The [place] [employer] recommends a Vitamin D level of = or >20ng/mL in infants and children. PERFORMED AT [address] [address] URIC ACID Reviewed date:11/25/2024 08:51:27 AM Interpretation: Performing Lab: Notes/Report:URIC ACID8.42.6-7.2 mg/dL PERFORMED AT [address] [address] URINALYSIS Reviewed date:11/25/2024 09:02:57 AM Interpretation: Performing Lab: Notes/Report:COLORColorlessYellowTURBIDITYClearClearSPECIFIC GRAVITY1.0061.003- 1.035 NANITRITENegativeNegativePH,URINE5.55.0-8.5 NALEUKOCYTE ESTERASESmall NegativePROTEINNegativeNegativeKETONES (URINE)NegativeNegativeUROBILINOGEN<1.1 eu/dL<1.1 eu/dLBILIRUBIN (URINE)NegativeNegativeBLOOD/HGBNegativeNegativeMUCOUS PresentNoneR.B.CELLS<10-5 NASQUAMOUS EPITHELIUM<10-5 NAW.B.KVMHO64-0 NAGLUCOSE (URINE)NegativeNegative PERFORMED AT [address] [place] [address] SERUM PROTEIN ELECTROPHORESIS Reviewed date:12/02/2024 01:36:04 PM Interpretation: Performing Lab: Notes/Report:TOTAL PROTEIN6.36.0-8.0 g/dLALPHA 1 GLOBULIN0.40.1-0.4 g/dLALPHA 2 GLOBULIN1.10.4-1.1 g/dLBETA GLOBULIN0.70.5-1.2 g/dLGAMMA GLOBULIN1.20.5-1.6 g/dL PROTEIN ELECTROPHORESIS INTERPSee Pathology ReportALBUMIN (G/DL)2.93.4-5.3 g/dL PERFORMED AT [address] [place] [address] CLINICAL PATHOLOGY REVIEW Reviewed date:12/02/2024 01:35:34 PM Interpretation: Performing Lab:[facility] ([facility]), [address] [place], [place] [address]E., [address] [place] [address]. [address] PH:[phone] Notes/Report:CLINICAL PATHOLOGY REVIEWSEE RESULTS BELOW SPECIMEN SOURCE Blood, Venous LAB AP CASE REPORT: Clinical Pathology Report Case: [id number] Authorizing Provider: Ariadna Rojas MD Collected: 11/25/2024 [facility] Ordering Location: [facility] Received: 11/25/[address] [place] [address] - Lab Pathologist: Andrae Tomlinson MD Specimen: Blood, Venous LAB AP FINAL DIAGNOSIS: Prominent band in gamma region, recommend immunofixation for further evaluation. Hypoalbuminemia. at 1759 EDT PERFORMED [address] [place] [address] CLINICAL PATHOLOGY REVIEW Reviewed date:11/27/2024 01:40:40 PM Interpretation: Performing Lab:[facility] ([facility]), [address] [place], [place] [address]., [address] [address] PH:[phone] Notes/Report:CLINICAL PATHOLOGY REVIEWSEE RESULTS BELOW SPECIMEN SOURCE Urine LAB AP CASE REPORT: Clinical Pathology Report Case: [id number] Authorizing Provider: Ariadna Rojas MD Collected: 11/25/2024 [facility] Ordering Location: [facility] Received: 11/25/[address] [place] [address] - Lab Pathologist: Andrae Tomlinson MD Specimen: Urine LAB AP FINAL DIAGNOSIS: No monoclonal or other protein bands identified. at 1828 EDT PERFORMED AT [address], [place] [address] URINALYSIS Reviewed date:09/19/2024 10:10:09 AM Interpretation: Performing Lab: Notes/Report:COLORColorlessYellow, ColorlessTURBIDITYClearClearSPECIFIC GRAVITY 1.0091.003-1.035 NANITRITENegativeNegativePH,URINE6.05.0-8.5 NALEUKOCYTE ESTERASENegativeNegativePROTEINNegativeNegativeKETONES (URINE)NegativeNegative UROBILINOGEN<1.1 eu/dL<1.1 eu/dLBILIRUBIN (URINE)NegativeNegativeBLOOD/HGB NegativeNegativeGLUCOSE (URINE)NegativeNegative PERFORMED AT [address] [address] URINE SODIUM,RANDOM Reviewed date:09/19/2024 12:22:09 PM Interpretation: Performing Lab: Notes/Report:URINE SODIUM,LZGHWZ973 PERFORMED AT [address] [address] COMPREHENSIVE METABOLIC PANEL Reviewed date:09/09/2024 12:40:13 PM Interpretation: Performing Lab: Notes/Report:EDCLSK565701-668 mmol/LPOTASSIUM4.13.5-5.0 mmol/CCTYNSTTA60171-100 mmol/LCARBON BAONOZV9669-14 mmol/LANION HDG84-85 mmol/LBLOOD UREA LOOXFCFL279-38 mg/dLCREATININE2.070.40-1.00 mg/dLMETHOD TRACEABLE TO IDMS LBYYLQMZFBAGMMG7348- 99 mg/dLCALCIUM9.28.5-10.5 mg/dLTOTAL PROTEIN6.46.0-8.0 g/dLALBUMIN3.43.2-5.3 g/dLALKALINE SBYWSRYWJWZ3936-865 U/LAST17<=41 U/LALT8<=31 U/LBILIRUBIN,TOTAL0.4 0.3-1.2 mg/dLEGFR (CKD-EPI) NON-RACE TBIEHYDKW19>=60 ml/min/1.73sq.m Reported eGFR is based on the CKD-EPI 2020 equation that does not use a race coefficient. PERFORMED AT [address], [place] [address] The copy-to physician of this order is ARIADNA Spain CBC (COMPLETE BLOOD COUNT) * Reviewed date:09/09/2024 12:40:27 PM Interpretation: Performing Lab: Notes/Report:WBC3.54-11 x10E9/LRBC COUNT3.743.8-5.2 X10E12/LHEMOGLOBIN9.811.7- 15.5 g/bXYJPLVROSPB60.735-47 %JYQ7961-556 fLMCH26.327-34 diHZRO81.132-36 g/dLRDW 17.711.5-15 %PLATELET YUZDX992864-816 X10E9/LMPV9.17-12 fL PERFORMED AT [address] [id number] URIC ACID Reviewed date:09/02/2024 09:42:56 AM Interpretation: Performing Lab: Notes/Report:URIC ACID8.42.6-7.2 mg/dL PERFORMED AT [address] [address] COMPREHENSIVE METABOLIC PANEL Reviewed date:09/02/2024 02:31:40 PM Interpretation: Performing Lab: Notes/Report:YLGQZJ314096-377 mmol/LPOTASSIUM4.13.5-5.0 mmol/VURANHXZS74218-488 mmol/LCARBON ETIGOSQ6434-24 mmol/LANION SZO515-37 mmol/LBLOOD UREA KPESFMJV537- 27 mg/dLCREATININE1.730.40-1.00 mg/dLMETHOD TRACEABLE TO IDMS ODIMQMGCFVWCKEP86 65-99 mg/dLCALCIUM9.38.5-10.5 mg/dLTOTAL PROTEIN6.56.0-8.0 g/dLALBUMIN3.33.2-5.3 g/dLALKALINE GDHFQWWWJMW7149-672 U/LAST19<=41 U/LALT11<=31 U/LBILIRUBIN,TOTAL0.4 0.3-1.2 mg/dLEGFR (CKD-EPI) NON-RACE SJEWKAOGM26>=60 ml/min/1.73sq.m Reported eGFR is based on the CKD-EPI 2020 equation that does not use a race coefficient. PERFORMED AT [address], [place] [address] The copy-to physician of this order is NYASIA Thurman ; ARIADNA ROJAS VITAMIN D 25 HYD TOT Reviewed date:09/02/2024 09:42:16 AM Interpretation: Performing Lab: Notes/Report:VITAMIN D 25 HYD TOT27.130.0-100.0 ng/mL Vitamin D status 25 [place] Vitamin D Deficiency <20 ng/mL Insufficiency 20-29 ng/mL Sufficiency 30-100 ng/mL Toxicity >100 ng/mL NOTE: A pediatric reference range has not been established by the quality lab technician of this kit. The [place] [employer] recommends a Vitamin D level of = or >20ng/mL in infants and children. PERFORMED AT [address] [place], [place] [address] [facility]) Reviewed date:09/02/2024 09:42:31 AM Interpretation: Performing Lab: Notes/Report:PTH TBKFBF8100-34 pg/mL PERFORMED AT [address], [place] [address] MICROALBUMIN WITH RATIO Reviewed date:09/02/2024 09:41:40 AM Interpretation: Performing Lab: Notes/Report:URINE CREATININE,WSJ139.21MALB/CREAT RATIO60.10.0-30.0 mg/g MICROALBUMIN, URINE6.50.0-1.9 mg/dL PERFORMED AT [address], [place] [address] PHOSPHORUS Reviewed date:09/02/2024 09:43:05 AM Interpretation: Performing Lab: Notes/Report:PHOSPHORUS3.42.4-4.9 mg/dL PERFORMED AT [place] [address],[place] [address] MAGNESIUM Reviewed date:09/02/2024 09:43:16 AM Interpretation: Performing Lab: Notes/Report:MAGNESIUM1.91.8-2.6 mg/dL PERFORMED AT [facility] [address],[place] [address] Reason For Referral No Information Medications Medication SIG (Take, Route, Frequency, Duration) Notes Start Date End Date Status Eliquis 5 MG 1 tablet orally BID ActiveDiltiazem CD 180mg1 tablet orally DailyNot-TakingFerrous Sulfate 324 (65 Fe) MG1 tablet Orally Once a dayActiveMulti VitaminNot-TakingCarvedilol 12.5 MG1 tablet with food Orally Twice a dayActiveSodium Bicarbonate 650 MG1 tablet orally BIDActiveCetirizine HCl 10 MG1 tablet Orally Once a dayActiveBiotin 5 MG1 tablet Orally Once a dayNot-TakingPantoprazole Sodium 40 MG1 tablet Orally Once a dayActiveHydroxychloroquine Sulfate 200 MG1 tablet orally BIDActiveLidocaine 5 %1 patch remove after 12 hours Externally Once a dayActiveFolic Acid 1 MG2 tablets Orally Once a dayActiveVitamin B-12 100 mcg1 tablet Orally Once a day Not-TakingFurosemide 20 MG1 tablet Orally Once a dayActiveFlecainide Acetate 100 MG1 tablet orally every 12 hrsActivePlaquenil 200 MG1 tablet Orally BID Not-TakingFluticasone FuroateActivepredniSONENot-Taking Social History Tobacco Use: Social History Observation Description Date Details (start date - stop date) Never Smoker NA - NA Tobacco Use/Smoking Question Answer Notes Patient is a nonsmoker Problems Problem Type SNOMED Code ICD Code Onset Dates Problem Status W/U Status Risk Notes Problem Renovascular hypertension (77215 9005) 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) ActiveconfirmedProblemChronic kidney disease stage 3 (disorder) (357423876) Chronic kidney disease, stage 3 (moderate) (N18.3)ActiveconfirmedProblemAnemia (122483102)Anemia (D64.9)ActiveconfirmedProblemSystemic lupus erythematosus (66347536)Lupus (systemic lupus erythematosus) (M32.9)ActiveconfirmedProblem Congestive heart failure (03755112)CHF (congestive heart failure) (I50.9)Active confirmedProblemAlbuminuria (318049425)Albuminuria (R80.9)ActiveconfirmedProblem Cardiorenal syndrome (600169471)Cardiorenal syndrome (I13.10)Activeconfirmed ProblemRheumatoid arthritis (85179748)Rheumatoid arthritis involving multiple sites with positive rheumatoid factor (M05.79)ActiveconfirmedProblemEssential hypertension (05869889)Asymptomatic hypertension (I10)ActiveconfirmedProblem Rheumatoid arthritis in remission (806946314596468)Rheumatoid arthritis in remission (M06.9)ActiveconfirmedProblemChronic kidney disease stage 3A (disorder) (914007770)Chronic kidney disease, stage 3a (N18.31)Activeconfirmed ProblemChronic kidney disease stage 3B (disorder) (244359702)Chronic kidney disease, stage 3b (N18.32)Activeconfirmed Vital Signs Blood pressure diastolic 68 mm Hg 12/02/2024 Ildydh3uq 6 in in12/02/2024lood pressure oknswrqm069 mm Hg12/02/20245129Mbcjrg522.4 lbs12/02/2024BMI48 kg/m212/02/2024 Encounters Encounter Location Date Provider Diagnosis [facility] [address] [place] [phone] 09/02/2024 Ariadna Rojas Chronic kidney disease, stage 3a N18.31 [facility] [address] [place] [address] 11/25/2024 Ariadna Rojas [facility] [place] [phone] RankerChronic kidney disease (CKD) stage G3b/A2, moderately decreased glomerular filtration rate (GFR) between 30-44 mL/min/1.73 square meter and albuminuria creatinine ratio between 30-299 mg/g N18.32 ; CHF (congestive heart failure) I50.9 ; Cardiorenal syndrome I13.10 and Anemia D64.9[facility] [address] [place] [id number]/22/2025John RankerChronic kidney disease, stage 3b N18.32 ; Anemia D64.9 ; Asymptomatic hypertension I10 and Proteinuria R80.9 Assessments Encounter Date Diagnosis (ICD Code) Assessment Notes Treatment Notes Treatment Clinical Notes Section Notes 09/23/2024 Chronic kidney disea se (CKD) stage G3b/A2, moderately decreased glomerular filtration rate (GFR) between 30-44 mL/min/1.73 square meter and albuminuria creatinine ratio between 30-299 mg/g (ICD-10 - N18.32) 63 yo F with worsening CKD that is most likely related to cardiorenal factors OK to continue Eliquis for CVA prevention Continue lasix daily for volume control BP today is well controlled No obstructive concerns on renal US Electrolytes are OK Continue daily iron supplement, Hgb is 9.7 with MCV of 80 Avoid all NSAID use Albuminuria remains mild No evidence of hematuria Check TITO studies for evaluation of Anemia and CKD Decrease sodium bicarb to once daily dosing 09/23/2024HF (congestive heart failure) (ICD-10 - I50.9)12/02/2024hronic kidney disease, stage 3b (ICD-10 - N18.32) 64 yo F with anemia, CKD 3b, abnormal SPEP Her UPEP was unremarkable Check serum TITO for further evaluation of peak in the gamma region OK to continue iron supplement and f/u with PCP as scheduled for evaluation and treatment of anemia Avoid NSAIDs and IV contrast use May need a referral to hematology if her TITO results are abnormal OK to stop bicarb replacement, her level is up to 27 Continue BB and Eliquis for Afib management Flecainide management as per cardiology service recs 12/02/2024nemia (ICD-10 - D64.9)09/02/2024hronic kidney disease, stage 3a (ICD-10 - N18.31)12/02/2024symptomatic hypertension (ICD-10 - I10)09/23/2024 Cardiorenal syndrome (ICD-10 - I13.10)09/23/2024nemia (ICD-10 - D64.9) 12/02/2024Proteinuria (ICD-10 - R80.9) Plan Of Treatment Pending Test Test Name Order Date UA (URINALYSIS, COMPLETE) 09/19/2022 UA (URINALYSIS, COMPLETE) 09/18/2023 UA (URINALYSIS, COMPLETE) 09/23/2024 UA (URINALYSIS, COMPLETE) 09/02/2024 ALBUMIN, BLOOD 12/02/2024 ALBUMIN, BLOOD 09/23/2024 ALBUMIN, BLOOD 09/18/2023 ALBUMIN, BLOOD 09/19/2022 FERRITIN 12/02/2024 KAPPA and LAMBDA, FREE LIGHT CHAINS, BLO OD 09/23/2024 MAGNESIUM 09/23/2024 MAGNESIUM 12/02/2024 MAGNESIUM 09/19/2022 MAGNESIUM 09/18/2023 SODIUM (NA), URINE - RANDOM 09/02/2024 IRON AND TIBC (WITH SAT) 12/02/2024 CBC NO DIFF 09/18/2023 CBC NO DIFF 09/19/2022 CBC NO DIFF 12/02/2024 CBC NO DIFF 09/23/2024 BMP (BASIC MET PANEL - W/GFR) 09/19/2022 BMP (BASIC MET PANEL - W/GFR) 09/18/2023 PROTEIN ELECTROPHORESIS, BLOOD (SEP) MICROALBUMIN with ALB/CREAT RATIO, URINE (MALB)) 09/19/2022 MICROALBUMIN with ALB/CREAT RATIO, URINE (MALB)) 09/18/2023 PHOSPHORUS 12/02/2024 PHOSPHORUS 09/18/2023 PHOSPHORUS 09/19/2022 PTH INTACT (PARATHYROID HORMONE) 023 PTH INTACT (PARATHYROID HORMONE) 024 PTH INTACT (PARATHYROID HORMONE) 025 PROTEIN ELECTROPHORESIS, URINE RANDOM (U EP) 09/23/2024 URIC ACID 12/02/2024 URIC ACID 09/23/2024 URIC ACID 09/18/2023 URIC ACID 09/19/2022 VITAMIN D, 25 LEVEL (TOTAL) 09/19/2022 VITAMIN D, 25 LEVEL (TOTAL) 09/18/2023 VITAMIN D, 25 LEVEL (TOTAL) 12/02/2024 VITAMIN D, 25 LEVEL (TOTAL) 09/23/2024 US Renal 09/02/2024 BMP w/GFR 08/28/2023 ALBUMIN 08/28/2023 MAGNESIUM 08/28/2023 PHOSPHORUS 08/28/2023 [facility] ([facility]) 08/28/2023 VITAMIN D 25 HYD TOT 08/28/2023 CBC AND AUTO DIFF * 08/28/2023 URIC ACID 08/28/2023 PROTEIN and CREATININE w RATIO (RANDOM U RINE) (SPOT) 09/02/2024 IMMUNOFIXATION (TITO), SERUM 12/02/2024 BMP (BASIC MET PANEL) w/eGFR CKD-EPI BMP (BASIC MET PANEL) w/eGFR CKD-EPI BMP (BASIC MET PANEL) w/eGFR CKD-EPI Next Appt Details Provider Name:Ariadna Rojas, 04/07/2025 01:20:00 PM, [address], [place], [address], Insurance Providers Payer Name Payer Address Payer Phone Subscriber Number Group Number Insured Name Patient Relationship to Insured Coverage Start Date Coverage End Date [employer] [place] [employer] [address] [place] [address] [id number] Celia Turner - patient is the [id number] 2024 Medical (General) History Medical History History ICD Code CKD RASurgical History Surgery Date(Month/Year) right leg Hospitalization History Reason Date(Month/Year) pneumonia a fiblung issuesheart racing
--- OUTSIDE RECORDS SUMMARY | 2025-03-06 00:56 | XMS_ITS | Clinical Summary ---
Author Organization [facility] Address [address] [place] [address] Care Team Providers Care Director Medical Economics Name Role Phone Thalia Escalante [employer]CH[employer]ICAL [employer]ODUCT DESIGN ENGINEER Unavailable [phone] Allergies Active AllergyReactionsCriticalityNoted DateCommentsMacrolides And Ketolides XluviojljipXrsp00/11/2025Sulfa AxvavyebfngYokwsuwizosUepy71/11/2025Oseltamivir UspbgaskmbkDois63/11/9016HhighzijtgdoNwgyaszrfviLbjn46/11/2025 Medications MedicationSigDispense QuantityRefillsLast FilledStart DateEnd DateStatus furosemide (Lasix) 40 MG tablet Take by mouthActive cetirizine (ZyrTEC) 10 MG tablet Take by mouthActive pantoprazole (ProtoNix) 40 MG EC tablet Take 40 mg by mouth in the morning. Take before meals. Do not crush, chew, or split.Active folic acid (Folvite) 1 MG tablet Take by mouth DailyActive carvedilol (Coreg) 12.5 MG tablet Take by mouth in the morning and in the evening. Take with meals.Active flecainide (Tambocor) 100 MG tablet Take by mouthActive apixaban (Eliquis) 5 MG tablet Take 5 mg by mouth in the morning and 5 mg before bedtime.Active fluticasone (Flonase) 50 MCG/ACT nasal spray Administer 1 spray into each nostril Daily Shake gently. Before first use, prime pump. After use, clean tip and replace cap.Active lidocaine (Lidoderm) 5 % patch Apply 1 patch topically Daily Remove & discard patch within 12 hours or as directed by MD.Active hydroxychloroquine (Plaquenil) 200 MG tablet Take by mouthActive gabapentin (Neurontin) 100 MG capsule Indications:Peripheral autonomic neuropathy of unknown cause,Pain in both feet Take 1 capsule (100 mg) by mouth in the morning and 1 capsule (100 mg) in the evening and 1 capsule(100 mg) before bedtime. 90 capsule ctive Active Problems No known active problems Encounters DateTypeDepartmentCare MossMhulwcdfvum36/11/2025 2:00 PM ESTOffice Visit [facility] [address] [place] [address] Mylene Zepeda, MILLIE Venous insufficiency of lower extremity (Primary Dx); Peripheral autonomic neuropathy of unknown cause; Pain in both feet; Vfuejtyxxphdr17/11/2025amboo flowsheet [facility] [address] [place] [address] Mylene Zepeda DPM 02/20/2025Travelfrom Last 3 Months Family History Medical HistoryRelationNameCommentsHeart diseaseMotherRelationNameStatusComments Mother Social History Tobacco UseTypesPacks/DayYears UsedDateSmoking Tobacco: NeverSmokeless Tobacco: Never Tobacco Cessation:Counseling Given: Not Answered CommentsUnknownSex and Gender InformationValueDate RecordedSex Assigned at BirthNot on fileLegal TbcLxvyme64/15/2023 6:44 PM EDTGender IdentityNot on fileSexual OrientationNot on file Last Filed Vital Signs Vital SignReadingTime TakenCommentsBlood Pressure--Pulse--Temperature-- Respiratory Rate--Oxygen Saturation--Inhaled Oxygen Concentration--Rjdpjb998 kg (298 lb)02/20/2025 2:21 PM DLODzhbxo119.2 cm (5' 7 )02/20/2025 2:21 PM ESTBody Mass Index46.6702/20/2025 2:21 PM EST Plan of Treatment DateTypeDepartmentCare Team (Latest Contact Info)Irhiapezznm20/19/2026 9:30 AM EDTProcedure Visit [facility] [address] [place] [address] Mylene Zepeda DPM [address] [place] [address] Health MaintenanceDue DateLast DoneCommentsCT Sspklparprvf80/17/1962Colonoscopy 1961FIT1961 4749Stpsvvmuwpuxj05/17/1962Pap Smear1982Cervical Cancer Grvvpmmuk42/17/1992HPV/Trihcb3709/27/1991FOBTColorectal Cancer Xjguiuopv03/28/2024FIT-DNA4105/10/2020, 10/04/2017Influenza Vaccine (#1) 511/11/2020, 11/28/2018, 12/30/2017, Additional history existsMammogram 602/, 05/04/2023, 05/02/2022, Additional history exists Pneumococcal Vaccine: Pediatrics (0 to 5 Years) and At-Risk Patients (6 to 64 Years)Aged OutNo longer eligible based on patient's age to complete this topic Insurance Care Teams Team MemberRelationshipSpecialtyStart DateEnd Date Thalia Escalante APRN-MARC Nurse PractitionerFamily Lcjocrpt05/11/25
--- OUTSIDE RECORDS SUMMARY | 2025-03-06 00:56 | XMS_ITS | Clinical Summary ---
Author Organization [facility] 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 Name Role Phone Unavailable Primary Care Provider Unavailabl e Allergies Active AllergyReactionsCriticalityNoted KgklJcpkfcrpCkktlkjivdhy17/05/2025 UishlhewtooDqjoqlunbezBvmq37/05/2025Sulfa LtpwdretegsFobxbwzs62/05/2025 Medications MedicationSigDispense QuantityRefillsLast FilledStart DateEnd DateStatus apixaban (ELIQUIS) 5 MG TABS tablet Take 1 tablet by mouth 2 times dailyActive cetirizine (ZYRTEC) 10 MG tablet Take 1 tablet by mouth dailyActive folic acid (FOLVITE) 1 MG tablet Take 1 tablet by mouth dailyActive hydroxychloroquine (PLAQUENIL) 200 MG tablet Take 1 tablet by mouth 2 times dailyActive fluticasone (FLONASE) 50 MCG/ACT nasal spray 1 spray by Each Nostril route daily as needed for RhinitisActive lidocaine (LIDODERM) 5 % Place 1 patch onto the skin as needed for Pain 12 hours on, 12 hours off.Active carvedilol (COREG) 12.5 MG tablet Take 1 tablet by mouth 2 times daily (with meals) 60 tablet 304/5Active flecainide (TAMBOCOR) 100 MG tablet Take 1 tablet by mouth 2 times daily 60 tablet 11055Active ferrous sulfate 324 (65 Fe) MG EC tablet every 24 hoursActive polyethylene glycol (GLYCOLAX) 17 GM/SCOOP powder 1 scoop mixed with 8 ounces of fluid Orally Once a day for 30 days As neededActive furosemide (LASIX) 20 MG tablet Take 0.5 tablets by mouth every other day 45 tablet tive Active Problems ProblemNoted DateDiagnosed DateAtelectasis, left06/17/2024KI (acute kidney injury)06/16/2024Loculated pleural walwrsbt40/06/2025Pleural /05/2025 Pericardial /05/2025Paroxysmal atrial wymxritmtedb89/05/2025GERD (gastroesophageal reflux disease)06/15/2024Rheumatoid lyxvxyfil71/05/2025 Immunosuppressed lbhgvi6506/15/2024ute hypoxic respiratory jhmnbxw4906/15/2024 Community acquired pneumonia of left lower lobe of lung06/15/2024RP elevated 06/15/2024 Encounters DateTypeDepartmentCare IpcrAdikyncdguz81/17/2025Orders Only [facility] [address], [address] [place], [place] [id number] Elsa Bui MA 01/27/2025Orders Only [facility] [address], [address] [place] [id number] Elsa Bui MA 01/27/2025Telephone [facility] [address], [address] [place] [address] Rosa Millan APRN - LAB SUPPORT SERVICE TECH Advice Onlyfrom Last 3 Months Family History Medical HistoryRelationNameCommentsHeart DiseaseMotherRelationNameStatusComments Mother Social History Tobacco UseTypesPacks/DayYears UsedDateSmoking Tobacco: NeverSmokeless Tobacco: Never Tobacco Cessation:Counseling Given: Not Answered [facility] UtilitiesAnswerDate RecordedIn the past 12 months has the electric, gas, oil, or water bMobilized threatened to shut off services in your home?No06/15/2024 Hunger Vital SignAnswerDate RecordedWithin the past 12 months, you worried that your food would run out before you got the money to buymore.Never true04/07/2024 Within the past 12 months, the food you bought just didn't last and you didn't have money to get more.Never true06/15/2024PRAPARE - TransportationAnswerDate RecordedIn the past 12 months, has lack of transportation kept you from medical appointments or from getting medications?No06/15/2024In the past 12 months, has lack of transportation kept you from meetings, work, or from getting things needed for daily living?No06/15/2024Housing Stability Vital SignAnswerDate RecordedIn the last 12 months, was there a time when you were not able to pay the mortgage or rent on time?No06/15/2024In the past 12 months, how many times have you moved where you were living?t any time in the past 12 months, were you homeless or living in a longterm (including now)?No06/15/2024 Food InsecurityAnswerDate RecordedWithin the past 12 months, you worried that your food would run out before you got the money to buymore.Within the past 12 months, the food you bought just didn't last and you didn't have money to get more.Interpersonal Safety Domain Source: IP Abuse ScreeningAnswerDate RecordedPhysical klrnxSdzmij65/05/2025Verbal abuseDenies 06/15/2024Emotional rapjbJvcosu19/05/2025Financial rrjgkRjjxmd02/05/2025Sexual upbjpDmqlms72/05/2025CommentsUnknownSex and Gender InformationValueDate RecordedSex Assigned at ZtgtrEmkqzt55/22/2025 11:09 AM EDTLegal SexFemale 06/14/2024 7:16 PM EDTGender IdentityNot on fileSexual OrientationNot on file Last Filed Vital Signs Vital SignReadingTime TakenCommentsBlood Ihcflwou914/6509 1:30 PM EDT Dkgly2667 1:53 PM HPAOfaicrretly27.5 ??C (97.7 ??F)06/19/2024 12:23 PM EDTRespiratory Oaam0777 1:53 PM EDTOxygen Tvdyhfpylb22%11/27/2024 1:30 PM EDTInhaled Oxygen Concentration--Vmjkar314.5 kg (301 lb)11/27/2024 1:30 PM CEJEvhjls971.2 cm (5' 7 )11/27/2024 1:30 PM EDTBody Mass Index47.14011/27/2024 1:30 PM EDT Plan of Treatment DateTypeDepartmentCare Team (Latest Contact Info)Bgzalouobug84/14/2026 2:15 PM ESTOffice Visit [facility] [place] [address], [address] [place] [address] Corrie Sapp MD [address] [place], [place] [phone] PER EU04/29/2025 11:00 AM ESTOffice Visit [facility] [address] [place] [phone] David Barcenas MD [address] [place], [place] [id number] 6 mo follow upHealth MaintenanceDue DateLast DoneCommentsDepression Screen 1973HIV mbwjxm4109/26/1976Hepatitis C gincib3909/27/1979hingles vaccine (1 of 2)1980Pap smear1982Cervical cancer ospqzh6909/27/1991HPV (without or with Pap)09/27/19918227Ezloom23/17/3501Mtsvntznneq70/17/2007FIT/FOBT: Average risk 2006Sigmoidoscopy/CT bvcigtaokmqi64/17/2007COVID-19 Vaccine (3 - Moderna risk series)104/, 1Pneumococcal 50+ years Vaccine (3 of 3 - PCV20 or PCV21)/05/2016, 01/12/2016Colorectal Cancer Screen 12/28/2024Fecal-DNA (Cologuard): Average risk412/Flu vaccine (#1)511/11/2020, 11/28/2018, 12/30/2017, Additional history existsGFR test (Diabetes, CKD 3-4, OR last GFR 15-59)604/11/2024, 06/18/2024, 06/17/2024, Additional history existsBreast cancer lyxpby48, 05/04/2023, 05/02/2022, Additional history existsDTaP/Tdap/Td vaccine (3 - Td or Tdap), 12/26/2008Respiratory Syncytial Virus (RSV) or age 60 yrs+Twclxxbyz13/16/2023Hepatitis A vaccineAged OutNo longer eligible based on patient's age to complete this topicHepatitis B vaccineAged OutNo longer eligible based on patient's age to complete this topicHib vaccineAged Out No longer eligible based on patient's age to complete this topicMeningococcal (ACWY) vaccineAged OutNo longer eligible based on patient's age to complete this topicMeningococcal B vaccineAged OutNo longer eligible based on patient's age to complete this topicPolio vaccineAged OutNo longer eligible based on patient's age to complete this topic Procedures Procedure NamePriorityDate/TimeAssociated DiagnosisCommentsBASIC METABOLIC PANEL W/ REFLEX TO MG FOR LOW QJpzkiov72/09/2025 6:18 AM EDT from Last 3 Months or Most Recently Relevant to Health Maintenance Results * (ABNORMAL) Basic Metabolic Panel w/ Reflex to MG (06/19/2024 6:18 AM EDT) ComponentValueRef RangeTest MethodAnalysis TimePerformed AtPathologist MjqigzhdcIcvoln601783 - 145 mmol/L06/19/2024 6:18 AM EDTMERCY LAB[facility]ATORIES Potassium4.43.7 - 5.3 mmol/L06/19/2024 6:18 AM EDTMERCY LABORATORIESComment: Specimen hemolysis has exceeded the interference as defined by Marck. Value may be falsely increased. Suggest recollection if clinically indicated. Aldkyruc158(H)98 - 107 mmol/L06/19/2024 6:18 AM EDTMERCY BMOAFQKNDLKDWX713(L)20 - 31 mmol/L06/19/2024 6:18 AM EDTMERCY LABORATORIESAnion Jlx326 - 16 mmol/L 06/19/2024 6:18 AM EDTMERCY WBQAJQXVOYIRHcnqyqv3688 - 99 mg/dL06/19/2024 6:18 AM EDTMERCY AOOJJLITZXTYGGC78(H)8 - 23 mg/dL06/19/2024 6:18 AM EDTMERCY LABORATORIESCreatinine1.5(H)0.6 - 0.9 mg/dL06/19/2024 6:18 AM EDTMERCY LABORATORIESEst, Glom Filt Rate39(L)>60 mL/min/1.88y34806/19/2024 6:18 AM EDTMERCY LABORATORIESComment: ? These results are not intended for use in patients <18 years of age. ? eGFR results are calculated without a race factor using the 2020 CKD-EPI equation. Careful clinical correlation is recommended, particularly when comparing to results calculated using previous equations. The CKD-EPI equation is less accurate in patients with extremes of muscle mass, extra-renal metabolism of creatine, excessive creatine ingestion, or following therapy that affects renal tubular secretion. Calcium9.08.6 - 10.4 mg/dL06/19/2024 6:18 AM EDTMERCY LABORATORIESSpecimen (Source)Anatomical Location / LateralityCollection Method / VolumeCollection TimeReceived TimeBloodBLOOD SPECIMEN / Bradmgm0606/19/2024 6:18 AM EDT06/19/2024 6:43 AM EDT Narrative Authorizing ProviderResult TypeResult StatusHarmandeep Em Barakat MDCHEMISTRY ORDERABLESFinal ResultPerforming OrganizationAddressCity/State/ZIP CodePhone Number [facility] [place] [id number] [place] [address], [facility] [phone] from Last 3 Months or Most Recently Relevant to Health Maintenance Insurance Advance Directives * Full Code (Latest Code Status on File) Date ActivatedDate [facility]06/15/2024 12:34 AM06/19/2024 4:52 PM
--- OUTSIDE RECORDS SUMMARY | 2025-03-06 00:56 | XMS_ITS | Clinical Summary ---
Author Organization [facility] Address [address] [place] [address] Care Team Providers Care Software Technician Name Role Phone Unavailable Primary Care Provider Unavailabl e Social History Tobacco UseTypesPacks/DayYears UsedDateSmoking Tobacco: Never Assessed CommentsUnknownSex and Gender InformationValueDate RecordedSex Assigned at Not on fileLegal IunDhcvqz99/21/2025 12:20 PM EDTGender IdentityNot on file Sexual OrientationNot on file Plan of Treatment Health MaintenanceDue DateLast DoneCommentsAnxiety Oajjkzdnt37/17/1980Depression Iavtwbsmw25/17/1980HIV Bwwulomfc94/17/1980Hepatitis C Gyvwdniva17/17/1980 Cervical Cancer Frjbfneps27/17/1983CT Uhbhvytczcws61/17/2007Colonoscopy 09/26/20067163Vdgwockvenpvd90/17/2007Shingrix Vaccine (1 of 2)09/27/2011Fecal Occult Blood/01/2019Pneumococcal Vaccine: 50+ (3 of 3 - PCV20 or PCV21) /05/2016, 01/12/2016Cologuard (FIT-DNA), 10/04/2017Colorectal Cancer Jrjgjcbpy93/28/2024Covid-19 Vaccine ( - season), 06/03/2020Influenza Vaccine (#1)2024 01/19/2021, 11/28/2018, 12/30/2017, Additional history existsMammogram Screening 602/, 05/06/2024, 05/04/2023, Additional history existsDiabetes Vjbbtjfmd47/14/446702/, 05/23/2024, 05/22/2024, Additional history exists DTaP,Tdap,Td Vaccine (3 - Td or Tdap), 12/26/2008Lipid Rsmmebvpt51/17/779551/, 05/03/2022, 08/12/2019RSV VaccineCompleted 12/26/2022 Insurance
--- OUTSIDE RECORDS SUMMARY | 2025-03-06 00:56 | XMS_ITS | Encounter Summary ---
Author Organization [facility] Address [address] [place] [address] Care Team Providers Care Warehouse Insulation Worker Name Role Phone Escalante Thalia TRAMMELLN-SOFTWARE MAINTENANCE ENGINEER Unavailable [phone] Encounter Details DateTypeDepartmentCare Team (Latest Contact Info)Xzgzezwjlfg80/11/2025Travel Social History Tobacco UseTypesPacks/DayYears UsedDateSmoking Tobacco: NeverSmokeless Tobacco: NeverCommentsUnknownSex and Gender InformationValueDate RecordedSex Assigned at BirthNot on fileLegal RecElehkq98/15/2023 6:44 PM EDTGender Identity Not on fileSexual OrientationNot on filedocumented as of this encounter Plan of Treatment DateTypeDepartmentCare Team (Latest Contact Info)Vwooxangfbd81/19/2026 9:30 AM EDTProcedure Visit [facility] [address] [place] [phone] Mylene Zepeda, DPM [address] [place] [address] documented as of this encounter Visit Diagnoses Not on filedocumented in this encounter Care Teams Team MemberRelationshipSpecialtyStart DateEnd Date Thalia Escalante APRN-CNP Nurse PractitionerFamily Iqyioyrf31/11/25documented as of this encounter
--- OUTSIDE RECORDS SUMMARY | 2025-03-06 00:56 | XMS_ITS | Patient Health Record ---
Author Organization [facility] vices Address [address] [place], [place] [id number] Care Team Providers Care Retreader Name Role Phone Thalia Escalante Primary Care Provider [phone] Yeimi Avalos Unavailable [phone] Cosme Carrion Unavailable [phone] Ana Maria Omer Unavailable [phone] Janie Mckenzie Unavailable Jose Warnera Unavailable [phone] Jillian Sheriff Unavailable [phone] Allergies Allergen (clinical drug ingredient) Drug/Non Drug Allergy documented on EMR Reaction Allergy Type Onset Date Status SEASONAL ALLERGIES (uncoded)UnknownAllergyActivesulfadiazinesulfADIAZINE Anaphylaxis , HivesDrug AllergyActiveoseltamivirTamifluAnaphylaxisDrug Allergy ActiveazithromycinZithromaxAnaphylaxisDrug AllergyActiveoseltamivirOseltamivir UnknownDrug AllergyActive Results Component Value Reference Range Flag Notes CHEST 2 VWS Reviewed date:08/20/2024 09:17:01 AM Interpretation: Performing Lab: Notes/Report: SEE RESULTS BELOW Clinical history:Shortness of breath. TSH WITH REFLEX FT4 Reviewed date:09/02/2024 07:24:04 AM Interpretation: Performing Lab: Notes/Report: TSH 2.11 0.49-4.67 uIU/mL PERFORMED AT [facility] [address],[place] [address] LIPID PROFILE Reviewed date:09/02/2024 08:18:56 AM Interpretation: Performing Lab: Notes/Report:SAGYYEOLIJT905880-496 mg/hVCNGTLXCRQVXQL2604-832 mg/dLHDL JKPNYYALKYF35>39 mg/dL HDL <40 mg/dL - High Risk HDL > or = 40mg/dL- Desirable HDL >60 mg/dL - Negative Risk LDL (CALC)72<130 mg/dL LDL <100 mg/dL - Desirable LDL >160 mg/dL - High Risk CHOLESTEROL:HDL2.71.0-5.0 NAVERY LOW TETVPJHRSVL040-59 mg/dL PERFORMED AT [address] [address] COMPREHENSIVE METABOLIC PANEL Reviewed date:09/02/2024 08:18:56 AM Interpretation: Performing Lab: Notes/Report: Reported eGFR is based on the CKD-EPI 2020 equation that does not use a race coefficient. PERFORMED AT [address],[place] [id number] The copy-to physician of this order is NYASIA Thurman ; ARIADNA ESPOSITO OSPILI 407026-119 mmol/LPOTASSIUM4.13.5-5.0 mmol/DKEYXHEMW10278-957 mmol/LCARBON ZTPNEIR5723-44 mmol/LANION OKB914-85 mmol/LBLOOD UREA NSBTFWCD786-01 mg/dL CREATININE1.730.40-1.00 mg/dLHMETHOD TRACEABLE TO IDMS KHLFAHDXCXVZVUN7350-54 mg/dLCALCIUM9.38.5-10.5 mg/dLTOTAL PROTEIN6.56.0-8.0 g/dLALBUMIN3.33.2-5.3 g/dL ALKALINE PWHEJLNYXFO1262-335 U/LAST19<=41 U/LBILIRUBIN,TOTAL0.40.3-1.2 mg/dLALT 11<=31 U/LEGFR (CKD-EPI) NON-RACE DQDLWFDGZ80>=60 ml/min/1.73sq.mLCBC AND AUTOMATED DIFFERENTIAL Reviewed date:09/02/2024 08:18:49 AM Interpretation: Performing Lab: Notes/Report:WBC5.34-11 x10E9/LRBC COUNT3.813.8-5.2 X10E12/BFMPPBJIPRQ91.111.7- 15.5 g/jOFEGNMUJJSNH15.535-47 %BBTH8929-784 fLMCH26.527-34 ybMOPDQ16.032-36 g/dL RDW18.811.5-15 %HPLATELET NLDLJ062392-470 X10E9/LMPV9.37-12 fLEOSINOPHILS RELATIVE PERCENT BY AUTOMATED COUNT0.7BASOPHILS RELATIVE PERCENT BY AUTOMATED COUNT0.2NEUTROPHILS ABSOLUTE COUNT BY AUTOMATED COUNT3.61.5-6.6 10*3/uL LYMPHOCYTES ABSOLUTE COUNT (10*3/UL) BY AUTOMATED COUNT1.31.0-3.5 10*3/uL MONOCYTES ABSOLUTE COUNT (10*3/UL) BY AUTOMATED COUNT0.30.0-0.9 10*3/uL EOSINOPHILS ABSOLUTE COUNT (10*3/UL) BY AUTOMATED COUNT0.00.0-0.4 10*3/uL CELLAVISION DIFFERENTIAL TYPEAUTOMATED DIFFERENTIAL PERFORMED AT [address] [place] [address] The copy-to physician of this order is ARIADNA [place] NEUTROPHILS RELATIVE PERCENT BY AUTOMATED COUNT67.9LYMPHOCYTES RELATIVE PERCENT BY AUTOMATED COUNT24.9MONOCYTES RELATIVE PERCENT BY AUTOMATED COUNT6.3BASOPHILS ABSOLUTE COUNT (10*3/UL) BY AUTOMATED COUNT0.00.0-0.2 10*3/uLIRON PROFILE Reviewed date:02/05/2025 08:26:22 AM Interpretation: Performing Lab: Notes/Report:IGMA7683-950 ug/dLLIRON GAGDEWQ892537-713 ug/dLLIRON QXHANJGGOO10 15-50 % SATURATION PERFORMED AT [address] [place] [address] COMPREHENSIVE METABOLIC PANEL Reviewed date:02/05/2025 08:26:22 AM Interpretation: Performing Lab: Notes/Report: [place] [address] not use a race coefficient. CKD-EPI 2020 equation that does Reported eGFR is based on aimWCQGTJ115552-169 mmol/LPOTASSIUM4.33.5-5.0 mmol/L OONZTAYT47211-158 mmol/LCARBON TLDTHDY2817-61 mmol/LANION EDL50-79 mmol/LBLOOD UREA RLLCKYAJ388-19 mg/dLHCREATININE2.510.40-1.00 mg/dLHMETHOD TRACEABLE TO IDMS UQUWTGNBMCGLXVI7545-68 mg/dLCALCIUM9.08.5-10.5 mg/dLTOTAL PROTEIN6.96.0-8.0 g/dL ALBUMIN3.33.2-5.3 g/dLALKALINE PSCCNKCDBWS8693-206 U/LAST18<=41 U/LALT6<=31 U/L BILIRUBIN,TOTAL0.30.3-1.2 mg/dLEGFR (CKD-EPI) NON-RACE PAPJMXFQY65>=60 ml/min/1.73sq.mLCBC AND AUTOMATED DIFFERENTIAL Reviewed date:02/05/2025 08:26:22 AM Interpretation: Performing Lab: Notes/Report: This is an appended report. These results have been appended to a previously preliminary verified report. This is an appended report. These results have been appended to a previously preliminary verified report. This is an appended report. These results have been appended to a previously preliminary verified report. This is an appended report. These results have been appended to a previously preliminary verified report. This is an appended report. These results have been appended to a previously preliminary verified report. This is an appended report. These results have been appended to a previously preliminary verified report. This is an appended report. These results have been appended to a previously preliminary verified report. This is an appended report. These results have been appended to a previously preliminary verified report. This is an appended report. These results have been appended to a previously preliminary verified report.WBC2.24-11 10^9/LLRBC COUNT3.673.8-5.2 10^12/LL HEMOGLOBIN8.811.7-15.5 g/vARKZZZLLTOIU20.835-47 %HTOF6023-426 dIPZKR29.827-34 pg LMCHC31.532-36 g/wRDVWS81.711.5-15 %HPLATELET MLEMD026875-689 10^9/LLMPV10.07-12 fLCELLAVISION MYELOCYTE RELATIVE PERCENT BY MANUAL CCHPN0Uiyh is an appended report. These results have been appended to a previously preliminary verified re port.CELLAVISION RBC MORPHOLOGYNormalThis is an appended report. These results have been appended to a previously preliminary verified report.CELLAVISION DIFFERENTIAL TYPEMANUAL DIFFERENTIAL This is an appended report. These results have been appended to a previously preliminary verified report. PERFORMED AT [facility] [address],[place] [address] CELLAVISION % BAND USWJVYBDDMI0BONXBNYLSPJ NEUTROPHILS RELATIVE PERCENT BY MANUAL SNINN34THAAZNESRGT LYMPHOCYTES RELATIVE PERCENT BY MANUAL COUNT22 CELLAVISION MONOCYTES RELATIVE PERCENT BY MANUAL CESEZ4ETFDKVLDRUQ EOSINOPHILS PERCENT BY MANUAL GWRVT1DEKUNLMTVFC NEUTROPHILS ABSOLUTE COUNT BY MANUAL COUNT 1.51.5-6.6 10^9/LCELLAVISION LYMPHOCYTES ABSOLUTE COUNT BY MANUAL COUNT0.51.0- 3.5 10^9/LLCELLAVISION MONOCYTES ABSOLUTE COUNT BY MANUAL COUNT0.20.0-0.9 10^9/L CELLAVISION EOSINOPHILS ABSOLUTE COUNT BY MANUAL COUNT0.00.0-0.4 10^9/LMAMM SCREENING BILATERAL W CAD Reviewed date:05/07/2024 11:26:23 AM Interpretation: Performing Lab: Notes/Report: RESULTS BELOW ANNE MARIE SOSA 2COMPLETE BLOOD COUNT CBC (NO DIFF) Reviewed date:09/10/2024 08:32:08 AM Interpretation: Performing Lab: Notes/Report:WBC3.54-11 x10E9/LLRBC COUNT3.743.8-5.2 X10E12/LLHEMOGLOBIN9.811.7- 15.5 g/eQARZHRGTQBKP13.735-47 %OCAW5988-829 fLMCH26.327-34 naXKVGS80.132-36 g/dL RDW17.711.5-15 %HPLATELET QIWNJ540921-975 X10E9/LMPV9.17-12 fL PERFORMED AT [facility] [address],[place] [address] Strep Screen Reviewed date:07/29/2024 09:58:44 AM Interpretation: Performing Lab: Notes/Report: ResultnegativeHTRX - Pharyngitis / Laryngitis Reviewed date:07/30/2024 04:38:38 PM Interpretation: Performing Lab: Notes/Report: FOLIC ACID Reviewed date:09/10/2024 08:16:18 AM Interpretation: Performing Lab: Notes/Report:FOLIC ACID>25.0>5.8 ng/mL PERFORMED AT [address] [address] IRON PROFILE Reviewed date:09/10/2024 08:32:02 AM Interpretation: Performing Lab: Notes/Report:NTZJ3492-682 ug/dLLIRON GXDBNHJ349857-700 ug/dLLIRON TQLRPIASCA35 15-50 % SATURATIONL PERFORMED AT [address] [address] YSLLJAIHFJI000858-965 mg/dLLCOMPREHENSIVE METABOLIC PANEL Reviewed date:09/10/2024 08:32:08 AM Interpretation: Performing Lab: Notes/Report: Reported eGFR is based on the CKD-EPI 2020 equation that does not use a race coefficient. PERFORMED AT [address] [address] The copy-to physician of this order is ARIADNA [place] FYVTMMS091807-843 mmol/L POTASSIUM4.13.5-5.0 mmol/LXETQFTCY32155-690 mmol/LCARBON YFBHNYJ8840-30 mmol/L ANION SLX07-04 mmol/LBLOOD UREA AHSQTIZR061-58 mg/dLCREATININE2.070.40-1.00 mg/dLHMETHOD TRACEABLE TO IDMS YORNWCDQPKNQKJR3506-32 mg/dLCALCIUM9.28.5-10.5 mg/dLTOTAL PROTEIN6.46.0-8.0 g/dLALBUMIN3.43.2-5.3 g/dLALKALINE ZFMKMFSWBRN8395- 130 U/LAST17<=41 U/LBILIRUBIN,TOTAL0.40.3-1.2 mg/dLALT8<=31 U/LEGFR (CKD-EPI) NON-RACE UDFFTLJKZ73>=60 ml/min/1.73sq.mLVITAMIN B12 Reviewed date:09/10/2024 08:16:18 AM Interpretation: Performing Lab: Notes/Report:VITAMIN [id number] pg/mL PERFORMED AT [place] [id number] [facility]. [address],[place] [address] Reason For Referral Reason eval and treat Diagnosis 1 Stage 3b chronic kid sha disease (N18.32) Referral Organization Main Referring Provider First Name Ana Maria Referring Provider Last Name Kan Referring Provider Speciality Nurse Rosie bales Referred Provider Juvenal Loyd Nephrology Referred Provider Specialty Nephrology General Notes Yuriy Basilio 09/10 10:18:38 AM >Consult notes attached, closing referral. jwm Referral Priority Routine Referral Appointment Date 09/17/2024 Reason Referral for edema o f the lower legs and feet pain Diagnosis 1 Lower extremity zainab a (R60.0) Referral Organization Greg Gillis Referring Provider First Name Thalia Referring Provider Last Name Ava Referring Provider Speciality Family Med pernell Referred Provider Mylene Zepeda Referred Provider Specialty Podiatry Referral Priority Routine Referral Appointment Date 02/20/2025 Medications Medication SIG (Take, Route, Frequency, Duration) Notes Start Date End Date Status Amoxicillin-Pot Clavulanate 500-125 MG T ablet 1 tablet Orally every 12 hrs; Duration: 7 days 5ActiveEliquis 5 MG Tablet1 Tablet Oral twice daily; Duration: 90 days ActiveFurosemide 20 MG Tablet1 tablet Orally Once a day; Duration: 30 daysActive Fluticasone Furoate 50 MCG/ACT Aerosol Powder Breath Activated1 puff Inhalation Once a dayfloventActiveMedical Compression Socks - Miscellaneousas directed 5ActiveguaiFENesin ER 600 MG Tablet Extended Release 12 Hour1 tablet as needed Orally every 12 hrs; Duration: 10 days5ActiveFerrous Sulfate 325 (65 Fe) MG Tablet Delayed Release1 tablet Orally daily; Duration: 30 days 5ActiveLeflunomide 20 MG Tablet1 tablet Orally Once a dayActive Polyethylene Glycol 3350 17 GM/SCOOP Powder1 scoop mixed with 8 ounces of fluid Orally Once a day; Duration: 30 daysActiveLidocaine Pain Relief 4 % Patch1 patch as needed Externally Four times a dayActiveFlecainide Acetate 100 MG Tablet0.5 tablet Orally every 12 hrsActiveMucinex 600 MG Tablet Extended Release 12 Hour1 tablet as needed Orally every 12 hrs; Duration: 14 days5ActiveFolic Acid 1 MG TabletTAKE 1 TABLET BY MOUTH EVERY DAY FOR 30 DAYS; Duration: 90Active predniSONE 20 MG Tablet1 tablet with food or milk Orally Once a day; Duration: 5 days5ActiveCetirizine HCl 10 MG TabletTAKE 1 TABLET BY MOUTH EVERY DAY FOR 90 DAYS; Duration: 30 daysActivePantoprazole Sodium 40 MG Tablet Delayed Release1 TABLET 1/2 TO 1 HOUR BEFORE MORNING MEAL ORALLY ONCE A DAY 90 DAYS Orally Once a day; Duration: 90 daysActiveCarvedilol 12.5 MG Tablet1 tablet with food Orally Twice a day; Duration: 90 daysActive Immunizations Vaccine Route Administration Date Status Comme nts *Pneumococcal conjugate PCV 13-VFC OTH Other/Miscellaneous 01/12/2016 Administered Status:Comple te ,Reason:Given or N/A ,Site: *Pneumococcal polysaccharide EVQ26-Blkyjgy IM Intramuscular 03/15/2016 Administered Status:Comple te ,Reason:Given or N/A ,[facility] # [id number] *Tdap (Adacel)-VFC IM Intramuscular 09/27/2017 Administere d Status:Comple te ,Reason:Given or N/A Influenza (split), 3 yrs and above IM Intramuscular 12/31/2010 Administered Status:Comple te ,Reason:Given or N/A ,given at 1:25pm Influenza (split), 3 yrs and above OTH Other/Miscellaneous 11/28/2018 Administered Status:Comple te ,Reason:Given or N/A Influenza, quadrivalent (IIV4), split virus, 6-35 months dosage OTH Other/Miscellaneous 12/11/2017 Administered Status:Comple te ,Reason:Given or N/A Influenza, quadrivalent, split, preservative free, 3 years or older IM Intramuscular 01/19/2021 Administered Status:Comple te ,Reason:Given or N/A Influenza, seasonal, injectable, preservative free, 3 yrs and above IM Intramuscular 01/12/2016 Administered Status:Comple te ,Reason:Given or N/A ,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: [employer] Social History Tobacco Use: Social History Observation Description Date Details (start date - stop date) Never Smoker NA - NA Sex Assigned At : Social History Observation Description Sex Assigned At Female Social History Social DeterminantsSocial InfoQuestionAnswerNotesPRAPAREDate Completed/Updated: 04/26/2024patient entered dataWhat is your current housing situation?I have housingpatient entered dataAre you worried about losing your housing?No patient entered dataWhat is the highest level of school that you have finished?More than high schoolpatient entered dataWhat is your current work situation?I choose not to answer this questionpatient entered dataIn the past year, have you or any family members you live with been unable to get any of the following when it was really needed? Check all that applyI do not have problems meeting my needsHas lack of transportation kept you from medical appointments, meetings, work or from getting things needed for daily living?NoHow often do you see or talk to people that you care about and feel close to? (For example: talkingto friends on the phone, visiting friends or family, going to synagogue or club meetings)More than 5 times a weekpatient entered dataHow stressed are you? Stress is when someone feels tense, nervous, anxious, or can't sleep at nightbecause their mind is troubledNot at allpatient entered dataIn the past year have you spent more than 2 nights in a row in a [place], jail, retirement center, orjuvenile correctional facility?Nopatient entered dataAre you a refugee?Nopatient entered dataWhat country are you from?[place] patient entered dataDo you feel physically and emotionally safe where you currently live?Yespatient entered dataIn the past year, have you been afraid of your partner or ex-partner?I have not had a partner in the past year patient entered dataPRAPARE Score:2Limited Patient AuthorizationSocial Info QuestionAnswerNotesLimited Patient AuthorizationI authorize [facility] to disclose or provide protected health information about me.No patient entered dataSexual History:Social InfoQuestionAnswerNotesFamily PlanningAre you or your partner planning on becoming in the next year if not already ?NoPCMH and UDS DemographicsSocial InfoQuestionAnswer NotesPrimary Care Medical Home QuestionsDo you have any barriers to learning? Nonepatient entered dataWhat is your preferred method of learning?Reading patient entered dataHow often do you need to have someone help you read instructions?Neverpatient entered dataHousehold:Social InfoQuestionAnswer NotesHouseholdNumber of adults in household:1Drugs/Alcohol/Caffeine:Social Info QuestionAnswerNotesAlcohol Screen (Audit-C)Did you have a drink containing alcohol in the past year?IjJuwmqo4GvxaayymzpcfhuTuwvcmwxJeeaaOudy you used drugs other than those for medical reasons in the past 12 months?NoCAGE-AID Questionnaire (2018 Edition)Have you ever felt that you ought to cut down on your drinking or drug use?Nopatient entered dataHave people annoyed you by criticizing your drinking or drug use?Nopatient entered dataHave you ever felt bad or guilty about your drinking or drug use?Nopatient entered dataHave you ever had a drink or used drugs first thing in the morning to steady your nerves or to get rid of a hangover?Nopatient entered dataCAGE-AID Score0 InterpretationNegativeCaffeineIntake:1-2 cups per dayTobacco Use:Social Info QuestionAnswerNotesTobacco Control (Standard)Tobacco use:NonsmokerAdditional DetailsCategorySocial InfoOptionsDetailsMiscellaneous:Occupation:works full-time Culture/Language BarrierNoEducation LevelGrade 7-12, CollegeBarriers to Learning NoneLearning PreferenceTalking in a small groupHow often do you need to have someone help you read instructionsNeverSafetyPatient feels safe in relationships YesDrugs/Alcohol/Caffeine:Do you smoke marijuana?DeniesDo you drink alcohol?No Problems Problem Type SNOMED Code ICD Code Onset Dates Problem Status W/U Status Risk Notes Problem Overactive bladder (759967162) Overactive bladder (N32.81) ActiveconfirmedProblemOsteoarthritis of knee (377229302)Primary osteoarthritis of both knees (M17.0)ActiveconfirmedProblemIron deficiency anemia (68864961)Iron deficiency anemia (D50.9)ActiveconfirmedProblemAtrial fibrillation (26281939)A- fib (I48.91)ActiveconfirmedProblemLumbar radiculopathy (242722613)Lumbar back pain with radiculopathy affecting right lower extremity (M54.16)Activeconfirmed ProblemPrimary hypertension (09774526)Primary hypertension (I10)Activeconfirmed ProblemChronic kidney disease stage 3A (998397410)Stage 3a chronic kidney disease (N18.31)ActiveconfirmedProblemChronic kidney disease stage 3B (disorder) (032578806)Stage 3b chronic kidney disease (N18.32)ActiveconfirmedProblem Gastroesophageal reflux disease (501886453)GERD (gastroesophageal reflux disease) (K21.9)Activeconfirmed Comment:Discussed dietary modifications. Restart pantoprazole daily. If symptoms persistent despite treatment refer for EGD., ProblemRheumatoid arthritis (70210358)Rheumatoid arthritis (M06.9)Active confirmedProblemPneumonia (658699161)Pneumonia (J18.9)Problem resolvedconfirmed Comment:Rediagnosed with pneumonia during hospital stay in February (likely did not fully resolve).Will reassess CXR at this time prior to appointment next week.,ProblemAnemia (567704419)Anemia (D64.9)Problem resolvedconfirmed Comment:early sign of anemia again. 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 As per last pulmonary consult - there was concern for malignancy, and not for infection. 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.,Story:-Nodular densities in anterior mediastinum incidental finding on CT in 06/2016 -Repeat CT from end of 09/2016 demonstrated slight increase in moderate pericardial effusion -Also demonstrated left greater than right axillary lymphadenopathy w/ numerous small, nodular softtissue densitis through the anterior mediastinum, similar to before unclear if relates to adenophaty or thymic tissue; no calcification, no paratracheal or hilar adenopathy; -Rec'd repeat CT in 6 months or PET possibly considered to check for abnormal metabolic activity ormalignant potential -No pulm nodules, spleenogemagly or adrenal mass seen -Pt doesnt want PET scan;, ProblemShoulder joint pain (536207775)Shoulder pain, left (M25.512)Problem resolvedconfirmed Comment:new onset, not associated with current injury possible nerve impingement vs. tendinopathy start steroid taper advised if not improving should contact ortho for f/up with past hx of injury to shoulder, ProblemNeck pain (51763094)Neck pain (M54.2)Problem resolvedconfirmed Comment:stable c/w cyclobenzaprine as needed along with heat, massage, stretches, ProblemPericardial effusion (006679272)Pericardial effusion (I31.3)Problem resolvedconfirmed Comment:-Asymptomatic -Likely r/t RA -Vitals stable -Normal cardiac examination; heart sounds normal -Under care of cardiology -If develop symptoms; straight to ER; PVU, ProblemCostochondritis (00965194)Costochondritis (M94.0)Problem resolved confirmedProblemSeasonal allergy (766370653)Seasonal allergies (J30.2)Active confirmedComment:Pt with reported hx of sinus/allergy sx. uses zyrtec to aid in symptom reduction. Will reorder zyrtec. Will f/u as needed., Vital Signs Heart Rate 88 /min 02/27/2025 Marie Debbiephyllis 02/27/2025 03:34:34 PM EST > Temperature 98.1 degrees Fahrenheit 02/27/2025 [facility] 02/27/2025 03:34:34 PM EST > Respiratory Rate 20 /min 10/10/2024 Lorene Wong 10/10/2024 08:30:16 AM EDT > Blood pressure diastolic 99 mm Hg 02/27/2025 [facility] 02/27/2025 03:34:34 PM EST > Oximetry 93 % 02/27/2025 MarieSerge 02/27/2025 03:34:34 PM EST > Height-cm 170.18 cm 02/27/2025 MarieSerge 02/27/2025 03:34:34 PM EST > Weight-kg 131.09 kg 02/27/2025 MarieSerge 02/27/2025 03:34:34 PM EST > Height 67 in 02/27/2025 MarieSerge 02/27/2025 03:34:34 PM EST > Blood pressure systolic 187 mm Hg 02/27/2025 [facility] 02/27/2025 03:34:34 PM EST > Weight 289 lbs 02/27/2025 Serge Marie e 02/27/2025 03:34:34 PM EST > BMI 45.26 kg/m2 02/27/2025 Serge Marie e 02/27/2025 03:34:34 PM EST > Encounters Encounter Location Date Provider Diagnosis Main [address] [place] [id number] 04/26/2024 Alisha Timmy Primary hypertension I10 [address] [id number] 06/04/2024 Ana Maria Omer A-fib I48.91 and Hospital discharge follow-up Z09 [address] [id number] 06/26/2024 Ana Maria Omer Afib I48.91 ; Rheuma toid arthritis M06.9 and Hospital discharge follow-up Z09 [address] [id number] 07/25/2024 Ana Maria Omer HTN (hypertension) I 10 ; A-fib I48.91 ; Seasonal allergies J30.2 ; Medication refill Z76.0 and Encounter for screening for cardiovascular disorders Z13.[address] [id number] 07/29/2024 Ana Maria Omer Sore throat J02.9 an d Pansinusitis J32.[address] [id number] 08/19/2024 Ana Maria CalvertNeal Shortness of breath R06.02 and Lower extremity edema R60.[address] [id number] 10/10/2024 Thalia Escalante Primary hypertension I10 ; A-fib I48.91 ; Pansinusitis J32.4 ; Iron deficiency anemia D50.9 ; Stage 3b chronic kidney disease N18.32 ; Dietary counseling Z71.3 and Exercise counseling Z71.82 [facility] [address] [place], [place] [id number] 12/26/2024 Jillian [place] Encounter for dental examination and cleaning with abnormal findings Z01.21 and Dental caries into dentine K02.62 Dental Main [address] [place], [place] [id number] 01/02/2025 [facility] BMI 45.0-49.9, adult Z68.42 ; Encounter for dental examination and cleaning with abnormal findings Z01.21 ; Dietary counseling Z71.3 and Exercise counseling Z71.82 Dental Main [address] [place], [place] [id number] 02/27/2025 Jillian Sheriff Dental caries into dentine K02.62 [address] [place], [place] [id number] 02/27/2025 Thalia Escalante Bronchitis J40 Main [address] [place], [place] [id number] 03/11/2024 Janie Myerholtz Xbhk1415 [place], [place] [id number]/Katherine ZptcnayfvWzpd2580 [place], [place] [id number]/08/2024Katherine MyerholtzScreening mammogram for breast cancer Z12.46Skoq5545 [place], [place] [address]/05/2024Faith TiXxffNstd7584 [place], [place] [id number] McNealA-fib I48.88Otqk8891 [place], [place] [id number]/Faith McNealA-fib I48.91 Ozwi9515 [place], [place] [id number] McNealPansinusitis J32.1Uinw1269 [place], [place] [id number]/08/2024Faith Kan [facility]32.4[facility] [place] [address] 09/02/2024Faith McNealAnemia D64.9 and Stage 3b chronic kidney disease N18.[address] [id number]/03/2024Faith Kan Decreased GFR R94.4 and Iron deficiency anemia D50.1Okxs7600 [place], [place] [id number]/09/2024Katherine FzbegdbrtRoqz5189 [place], [place] [id number] McNealIron deficiency anemia D50.3Nosu7348 [place], [place] [address]/5Abigail HoffmanMedication refill Z76.0Main [address] [place] [place], [place] [address]/24/5Abigail HoffmanIron deficiency anemia D50.8Znkc6471 [place], [place] [address]/27/5Abigail ZuiyrmiGpvp9437 [place], [place] [address]/5Abigail HoffmanA-fib I48.71Qako6632 [place], [place] [address]/175Abigail HoffmanLower extremity edema R60.0 [address] [address]/5Abigail EzacuigGfhc8041 [place], [place] [address]/085Abigail HoffmanLower extremity edema R60.6Wbfq7790 [place], [place] [address]/105Abigail BfcmhqpWlpz1822 [place], [place] [address]/185Abigail HoffmanShortness of breath R06.02 Assessments Encounter Date Diagnosis (ICD Code) Assessment Notes Treatment Notes Treatment Clinical Notes Section Notes 04/18/2024 Screening mammogram for breast c ancer (ICD-10 - Z12.31) 04/26/2024Primary hypertension (ICD-10 - I10) BP noted to be elevated. PT reports normal reading at home and today she had disturbed sleep. Advised to check BP at home and keep a record of it to bring on next visit in 2 weeks. Discussed having diet low in salt and exercise. 06/04/2024-fib (ICD-10 - I48.91) keep appt with cardio and upcoming appt with caity lowering metoprolol as pt reports that the 50mg is making her too dizzy 06/26/2024fib (ICD-10 - I48.91) stable at this time following with cardiology 06/26/2024Rheumatoid arthritis (ICD-10 - M06.9) stable at this time continue on prednisone taper following with rhebarbie- keep follow up appt 07/29/2024Pansinusitis (ICD-10 - J32.4) pt reports that she has taken tessalon in the past with no issue begin ATB, mucinex, and tessalon ensure adequate hydration if worse in anyway, please go to ER. PVU 07/29/2024Sore throat (ICD-10 - J02.9)08/12/2024Pansinusitis (ICD-10 - J32.4) 08/16/2024Pansinusitis (ICD-10 - J32.4)08/19/2024Shortness of breath (ICD-10 - R06.02) crackles noted in R lower lobe- treating for pneumonia if worse in anyway, please go to ER. 1310 called patient on phone after reviewing CXR and recommended that since she is feeling SOB and with the XR showing pleural effusions that she should be evaluated in the ER. Pt denies at this time. reports that she is going to try the medications first. 08/19/2024Lower extremity edema (ICD-10 - R60.0)09/02/2024nemia (ICD-10 - D64.9)Comment:early sign of anemia again. will recheck iron levels.,06/28/2024- fib (ICD-10 - I48.91)07/01/2024-fib (ICD-10 - I48.91)09/10/2024Decreased GFR (ICD-10 - R94.4)09/10/2024Iron deficiency anemia (ICD-10 - D50.9)09/30/2024Iron deficiency anemia (ICD-10 - D50.9)07/25/2024HTN (hypertension) (ICD-10 - I10) stable follows with cardiology 07/25/2024-fib (ICD-10 - I48.91) stable follows with cardiology 10/10/2024-fib (ICD-10 - I48.91) Continue current treatment Follow with cardiology Go to ER for any chest pain or SOB 10/10/2024Primary hypertension (ICD-10 - I10) Continue current treatment. Follow with cardiology Patient's blood pressure control Pt was advised to take the medications daily as prescribed and call the office if there is any sideeffects due to medications. Pt was advised to check BP at home Life Style Modifications were discussed including: Reducing salt intake, regular exercise, reducingweight etc f/up in 6 months 10/21/2024Medication refill (ICD-10 - Z76.0)12/04/2024Iron deficiency anemia (ICD-10 - D50.9)12/26/2024Encounter for dental examination and cleaning with abnormal findings (ICD-10 - Z01.21)01/22/2025-fib (ICD-10 - I48.91)01/27/2025 Anemia (ICD-10 - D64.9)01/27/2025Lower extremity edema (ICD-10 - R60.0) 02/17/2025Lower extremity edema (ICD-10 - R60.0)02/27/2025Dental caries into dentine (ICD-10 - K02.62)02/27/2025Shortness of breath (ICD-10 - R06.02) 02/27/2025ronchitis (ICD-10 - J40) Decreased dose for kidney [...] or go to the ER. F/U PRN 01/02/2025MI 45.0-49.9, adult (ICD-10 - Z68.42)12/26/2024Dental caries into dentine (ICD-10 - K02.62)01/02/2025Encounter for dental examination and cleaning with abnormal findings (ICD-10 - Z01.21)10/10/2024Pansinusitis (ICD-10 - J32.4) Drink plenty of water Report any fevers May take mucinex, call if no improvement of cough 07/25/2024Seasonal allergies (ICD-10 - J30.2)09/02/2024Stage 3b chronic kidney disease (ICD-10 - N18.32)06/26/2024Hospital discharge follow-up (ICD-10 - Z09) 06/04/2024Hospital discharge follow-up (ICD-10 - Z09)07/25/2024Medication refill (ICD-10 - Z76.0)01/02/2025Dietary counseling (ICD-10 - Z71.3)10/10/2024Iron deficiency anemia (ICD-10 - D50.9) Continue current treatment plan Unable to increase iron per nephrology Monitor labs 01/02/2025Exercise counseling (ICD-10 - Z71.82)07/25/2024Encounter for screening for cardiovascular disorders (ICD-10 - Z13.6)10/10/2024Stage 3b chronic kidney disease (ICD-10 - N18.32)Following closely with inmsbrkrus83/31/2025Dietary counseling (ICD-10 - Z71.3)10/10/2024Exercise counseling (ICD-10 - Z71.82) Plan Of Treatment Next Appt Details Provider Name:Thalia diallo, 04/10/2025 08:45:00 AM, [address] [place], [place], [phone], Provider Name:Jillian Deacon diallo, 07/15/2025 08:45:00 AM, [address] [place] [address], [id number], Insurance Providers Payer Name Payer Address Payer Phone Subscriber Number Group Number Insured Name Patient Relationship to Insured Coverage Start Date Coverage End Date [employer]ares[employer] ce [facility] [address] [place], [place] [id number] Anne Marie Garrido Self - patient is the insured [employer] MCDPO [address] [place] [phone] [id number] Sosaf - patient is the [id number] 2024Medicaid [place] after C[address] [place], [place] [id number], DreDaronyesenia - patient is the [id number] [address] [facility] after CaresourceDentaquest[address] [place], [place] [id number], DrebreanacoraZachariahyesenia - patient is the [id number] 2024 Medical (General) History Medical History History ICD Code Allergic rhinitis Chronic kidney disease, stage III (moderate)COVID-19 virusGERD (gastroesophageal reflux disease)HypertensionObesityRheumatoid arthritisMass of Mediastinum Surgical History Surgery Date(Month/Year) Right Leg Surgery Hospitalization History Reason Date(Month/Year) AFib 05/24/24 pneumonia 2019
--- OUTSIDE RECORDS SUMMARY | 2025-03-06 00:56 | XMS_ITS | Clinical Summary ---
Author Organization [facility] Address [address] [place] [address] Care Team Providers Care Reheater Helper Name Role Phone Devika Galvez Primary Care Provider [phone] Allergies Active AllergyReactionsCriticalityNoted NymjQzyuyumcOdcuokqdrsiq04/09/2019 Other reaction(s): Unknown QfvysymglwyGzsxusczwysJtar41/14/2019Sulfa (Sulfonamide Antibiotics)Rash,Swelling Low02/16/2017 Other reaction(s): Unknown Lftodzjappbvt69/19/2022 Medications MedicationSigDispense QuantityRefillsLast FilledStart DateEnd DateStatus cetirizine (ZyrTEC) 10 mg tablet TAKE 1 TABLET NEEDED ORAL ONCE A DAY 90 DAYSActive fluticasone (Flonase) 50 mcg/actuation nasal spray INSTILL 1 SPRAY INTO EACH NOSTRIL ONCE DAILY NEEDED FOR ALLERGIESActive lidocaine (Lidoderm) 5 % patch APPLY 1 PATCH TO THE SKIN ONCE DAILY NEEDED FOR PAINActive naproxen (Naprosyn) 500 mg tablet Active omeprazole (PriLOSEC) [address] capsule Active oxybutynin XL (Ditropan-XL) 10 mg 24 hr tablet Take 1 tablet by mouth in the morning.Active pantoprazole (ProtoNix) 40 mg EC tablet 1 (ONE) TABLET PRIOR TO FIRST MEAL OF THE DAYActive polyethylene glycol (Glycolax) 17 gram/dose powder MIX 1 (ONE) SCOOPFUL WITH LIQUID AND MIX ONCE DAILY NEEDED FOR CONSTIPATION Active ferrous sulfate 324 mg (65 mg iron) EC tablet 1 (one) time each day at the same time.Active cyclobenzaprine (Flexeril) 10 mg tablet Indications:Myalgia, unspecified siteTAKE 1 TABLET BY MOUTH EVERY DAY NEEDED 30 tablet 3Active Additional Information Patient not taking.Reported on 11/27/2024 folic acid (Folvite) 1 mg tablet Indications:Rheumatoid arthritis with rheumatoid factor, unspecified (CMS/HCC) TAKE 2 TABLETS BY MOUTH EVERY DAY DIRECTED 180 tablet 4Active oxybutynin XL (Ditropan-XL) 5 mg 24 hr tablet 1 (one) time each day at the same time.4Active apixaban (Eliquis) 5 mg tablet Take 5 mg by mouth twice a day.5Active carvedilol (Coreg) 12.5 mg tablet Take 12.5 mg by mouth.5Active metoprolol tartrate (Lopressor) 50 mg tablet Take 50 mg by mouth twice a day.5Active metoprolol tartrate (Lopressor) 25 mg tablet Take 25 mg by mouth with breakfast and with evening meal.5Active flecainide (Tambocor) 100 mg tablet Take 1 tablet by mouth in the morning and at bedtime.5Active furosemide (Lasix) 20 mg tablet Take 1 tablet by mouth in the morning.5Active senna 8.6 mg tablet Take 1 tablet by mouth at bedtime.5Active sodium bicarbonate 650 mg tablet Take 1 tablet by mouth in the morning and at bedtime.5Active pyridoxine, vitamin B6, 50 mg capsule Take 1 capsule by mouth in the morning.Active Mucus Relief ER 600 mg 12 hr tablet TAKE 1 TABLET BY MOUTH EVERY 12 HOURS NEEDED FOR 10 DAYS5Active lidocaine (Lidoderm) 5 % patch Indications:Subacromial bursitis of left shoulder jointApply 1 patch topically in the morning. Remove & discard patch within 12 hours or as directed by . 30 patch 3065Active hydroxychloroquine (Plaquenil) 200 mg tablet Indications:Rheumatoid arthritis with positive rheumatoid factor, involving unspecified site (CMS/HCC)Take 1 tablet (200 mg) by mouth two times daily. 60 tablet 6095006/25/2025ctive leflunomide (Arava) 20 mg tablet Indications:Rheumatoid arthritis with positive rheumatoid factor, involving unspecified site (CMS/HCC)Take 1 tablet (20 mg) by mouth in the morning. 90 tablet tive Active Problems ProblemNoted DateDiagnosed DateOther senior living (current) drug dmwafpn3806/25/2024 SLE (systemic lupus erythematosus related syndrome)06/25/2024telectasis, left 06/17/2024KI (acute kidney injury)06/16/2024RP ryeqxfff57/05/2025GERD (gastroesophageal reflux disease)06/15/2024Immunosuppressed nxfstr3306/15/2024 Loculated pleural kqjxueqj38/05/2025Microcytic lvboco8406/06/2024hest pain 05/21/2024MI 50.0-59.9, adult03/19/2024Obesity, morbid, BMI 50 or higher 5Acute huuasmonkf10/16/2024Allergic njisfnhf57/16/2024ommunity acquired ujuncxnhm87/16/2024Pain of right lower sqyyvzqsm65/16/2024Sinusitis 09/26/20230781Akhcainwwrull30/16/2024Long term systemic steroid user08/29/2023 Rheumatoid arthritis with positive rheumatoid bjswbd4208/31/2022New onset atrial /09/2019Anterior mediastinal tumor01/04/2017Axillary ysrrcqrhceolqgl04/25/2017Pericardial twonmfde39/25/2017Acute upper respiratory ipzfwgmqz60/10/2014Rheumatoid odvbqrizg37/18/2014Inflammatory polyarthropathy 11/20/2013 Encounters DateTypeDepartmentCare VkzeWhesipiadyi53/01/2025Telephone [facility] [address] [place] [address] Vernell Candelaria, RN abnormal labs related to Rrqiaxziomdtvltyff45/17/2025Telephone [facility] [address] [place] [address] Vernell Candelaria, RN Foot Swellingfrom Last 3 Months Immunizations ImmunizationAdministration DatesNext DueInfluenza, injectable, MDCK, preservative free, vppyrkhyzrsm64/20/2018Influenza, injectable, quadrivalent, preservative free01/19/2021,11/28/2018Influenza, seasonal, pbeabsbvlb39/22/2015, 12/31/2010Influenza, seasonal, injectable, preservative free, 6 moonths & older 01/12/2016Pneumococcal Conjugate PCV 13103/13/2015Pneumococcal Polysaccharide NJG0718//2016RSV, Adult, Arukmzuporm61/16/7065Sjdj99/18/2018,12/26/2008 Social History Tobacco UseTypesPacks/DayYears UsedDateSmoking Tobacco: NeverSmokeless Tobacco: Never Tobacco Cessation:Counseling Given: Not Answered Alcohol UseStandard Drinks/WeekCommentsNever0 (1 standard drink = 0.6 oz pure alcohol)[facility] UtilitiesAnswerDate RecordedIn the past 12 months has the [employer], gas, oil, or water [place] threatened to shut off services in your home?No 07/03/2023Humiliation, Afraid, Rape, and Kick questionnaireAnswerDate Recorded Within the last year, have you been afraid of your partner or ex-partner?No 10/09/2023Emotionally AbusedNot on file10/09/2023hysically AbusedNot on file 10/09/2023Sexually AbusedNot on file10/09/2023Overall Financial Resource Strain (CARDIA)AnswerDate RecordedHow hard is it for you to pay for the very basics like food, housing, medical care, and heating?Not very hard07/03/2023HQ-2Answer Date RecordedPatient Health Questionnaire-2 Nvoue245UT Safety & EnvironmentAnswerDate RecordedWithin the last year, have you been afraid of your partner or ex-partner?No07/03/2023Emotionally AbusedNot on file07/03/2023 Physically AbusedNot on file07/03/2023Sexually AbusedNot on file07/03/2023In the past year have you been physically or sexually abused?Unrecognized value 07/03/2023TransportationAnswerDate RecordedIn the past 12 months, has lack of transportation kept you from medical appointments or from getting medications?No 07/03/2023Lack of Transportation (Non-Medical)Not on file07/03/2023Housing Stability Vital SignAnswerDate RecordedUnable to Pay for Housing in the Last YearNot on file07/03/2023Number of Places Lived in the Last YearNot on file 07/03/2023In the last 12 months, was there a time when you did not have a steady place to sleep or slept in ashelter (including now)?No07/03/2023Hunger Vital SignAnswerDate RecordedWithin the past 12 months, you worried that your food would run out before you got the money to buymore.Never true07/03/2023an Out of Food in the Last YearNot on file07/03/2023CommentsUnknownSex and Gender InformationValueDate RecordedSex Assigned at KnhorJonqhe28/17/2025 11:02 AM EDT Legal XliPdddhy70/29/2022 10:40 PM EDTGender LjobykcqRgzdrs76/17/2025 11:02 AM EDTSexual OrientationHeterosexual or Ykvyubsm18/17/2025 11:02 AM EDT Last Filed Vital Signs Vital SignReadingTime TakenCommentsBlood Punkipqb697/75011/27/2024 11:08 AM EDT Xwlxy363011/27/2024 11:08 AM EDTTemperature--Respiratory Qyta262803/26/2019 9:55 AM ESTOxygen Mxwlivtyuf10%08/27/2024 11:01 AM EDTInhaled Oxygen Concentration-- Xlzayj596 kg (289 lb)11/27/2024 11:08 AM XYUOarlvo165.2 cm (5' 7 )11/27/2024 11:08 AM EDTBody Mass Index45.2609 11:08 AM EDT Plan of Treatment DateTypeDepartmentCare Team (Latest Contact Info)Hvnoqdemjso89/14/2026 10:45 AM ESTFollow-Up [facility] [address] [place] [address] Donna Wise MD [address] [place] [place] [address] Health MaintenanceDue DateLast DoneCommentsCT Mzvymwricucf65/17/1962Colonoscopy 1961FOBT1961 8668Oaifnqmlnbhhk97/17/1962Zoster Vaccines (1 of 2) 1980Pap Smear1982Cervical Cancer Azooggivj67/17/1992HPV/Cotest 09/27/1991Pneumococcal Vaccine: Pediatrics (0 to 5 Years) and At-Risk Patients (6 to 64 Years) (3 of 3 - PCV20 or PCV21)/05/2016, 01/12/2016FIT olorectal Cancer Itauhdgpq45/28/2024FIT-DNA03/09/2024 03/09/2021, 10/04/2017COVID-19 Vaccine ( season)/11/2021, 07/01/2020, 06/03/2020Influenza Vaccine (#1)/11/2020, 11/28/2018, 12/30/2017, Additional history existsDepression Famageevt29/ Pzhkkdreu11/, 4Adult Bhojyjy56, 12/26/2008HIB VaccinesAged OutNo longer eligible based on patient's age to complete this topicHPV VaccinesAged OutNo longer eligible based on patient's age to complete this topicIPV VaccinesAged OutNo longer eligible based on patient's age to complete this topicMeningococcal B VaccineAged OutNo longer eligible based on patient's age to complete this topicMeningococcal VaccineAged OutNo longer eligible based on patient's age to complete this topicRotavirus Vaccines Aged OutNo longer eligible based on patient's age to complete this topic Insurance Care Teams Team MemberRelationshipSpecialtyStart DateEnd Date Devika Galvez [address] PCP - General08/30/22
--- OUTSIDE RECORDS SUMMARY | 2025-03-06 00:56 | XMS_ITS | Encounter Summary ---
Author Organization [facility] Address [address] [place] [address] Care Team Providers Care Time Study Technician Name Role Phone Thalia Escalante APRN-HOSPITALITY INTERN Unavailable [phone] Encounter Details DateTypeDepartmentCare Team (Latest Contact Info)Lutxhgjkdva69/11/2025amboo flowsheet [facility] [address] [address] Mylene Zepeda DPM [address] [place] [address] Social History Tobacco UseTypesPacks/DayYears UsedDateSmoking Tobacco: NeverSmokeless Tobacco: NeverCommentsUnknownSex and Gender InformationValueDate RecordedSex Assigned at BirthNot on fileLegal NtuVxlfzi66/15/2023 6:44 PM EDTGender Identity Not on fileSexual OrientationNot on filedocumented as of this encounter Plan of Treatment DateTypeDepartmentCare Team (Latest Contact Info)Nablwxfaonb60/19/2026 9:30 AM EDTProcedure Visit [facility] [address] [place] [address] Mylene Zepeda DPM [address] [place], [place] [id number] documented as of this encounter Visit Diagnoses Not on filedocumented in this encounter Care Teams Team MemberRelationshipSpecialtyStart DateEnd Date Thalia Escalante APRN-CNP Nurse PractitionerFamily Bnrszdwx72/11/25documented as of this encounter
--- OUTSIDE RECORDS SUMMARY | 2025-03-06 00:56 | XMS_ITS | Clinical Summary ---
Author Organization [email or web address] tem Address [id number] [place] [address] Care Team Providers Care Property Staff Accountant Name Role Phone Thalia Escalante APRN-HARDNESS INSPECTOR Primary Care Provide r Allergies Active AllergyReactionsCriticalityNoted DlkdXykvibbvDdrjrfjsteih49/09/2019 WpzjmcrpscpYivavoxtmcrDiyj40/14/2019Sulfa (Sulfonamide Antibiotics)Swelling,Rash Low02/16/2017 Medications MedicationSigDispense QuantityRefillsLast FilledStart DateEnd DateStatus folic acid (FOLVITE) 1 mg tablet Take 2 tablets (2 mg total) by mouth in the morning.Active cetirizine (ZyrTEC) 10 mg tablet Take 1 tablet (10 mg total) by mouth in the morning.Active hydroxychloroquine (PLAQUENIL) 200 mg tablet Take 1 tablet (200 mg total) by mouth in the morning and 1 tablet (200 mg total) before bedtime.Active cyanocobalamin (VITAMIN B-12) 100 MCG tablet Take 1 tablet (100 mcg total) by mouth in the morning.Active biotin 1 mg tablet Take 1 tablet (1 mg total) by mouth in the morning.Active lidocaine (LIDODERM) 5 % Place 1 patch on the skin daily. Remove & Discard patch within 12 hours or as directed by 30 patch 02/24/2020Active polyethylene glycol (GLYCOLAX) 17 gram packet Take 17 g by mouth daily. As needed for constipation. 10 each 02/24/2020Active pantoprazole (PROTONIX) 40 mg EC tablet Take 1 tablet (40 mg total) by mouth in the morning.Active predniSONE (DELTASONE) 5 mg tablet Take 1 tablet (5 mg total) by mouth in the morning.Active dilTIAZem CD (CARDIZEM CD) 300 mg 24 hr capsule Take 1 capsule (300 mg total) by mouth in the morning. 30 capsule 5Active apixaban (ELIQUIS) 5 mg tablet Take 1 tablet (5 mg total) by mouth in the morning and 1 tablet (5 mg total) before bedtime. 60 tablet 5Active metoprolol tartrate (LOPRESSOR) 50 mg tablet Take 1 tablet (50 mg total) by mouth in the morning and 1 tablet (50 mg total) before bedtime. 90 tablet 5Active fluticasone propionate (FLONASE) 50 mcg/actuation nasal spray Administer 2 sprays into each nostril daily as needed for rhinitis or allergies. Active oxybutynin XL (DITROPAN-XL) 5 mg 24 hr tablet Take 1 tablet (5 mg total) by mouth in the morning.Active TURMERIC ORAL Take 1 tablet by mouth in the morning.Active leflunomide (ARAVA) 20 mg tablet Take 1 tablet (20 mg total) by mouth in the morning.Active Lactobacillus acidophilus (PROBIOTIC ACIDOPHILUS ORAL) Take 1 tablet by mouth in the morning.Active multivit-min/folic acid/lutein (CENTRUM SILVER ORAL) Take 1 tablet by mouth in the morning.Active bisacodyL (DULCOLAX) 5 mg EC tablet Take 1 tablet (5 mg total) by mouth daily as needed for constipation.Active pyridoxine, vitamin B6, (VITAMIN B-6) 50 mg capsule Take 1 capsule by mouth in the morning.Active flecainide (TAMBOCOR) 100 mg tablet Take 1 tablet (100 mg total) by mouth every 12 (twelve) hours. 60 tablet 5Active Active Problems ProblemNoted DateDiagnosed DateGERD (gastroesophageal reflux disease)06/15/2024 Loculated pleural lsiqonxb16/05/2025trial fibrillation with RVR06/07/2024 Microcytic payucm9206/06/2024Obesity with serious shhjakdauff62/12/2025hest pain, unspecified type05/21/2024Pain of right lower ecncbqtrq43/16/2024New onset atrial /09/2019Axillary zuhnjncvhgryqav42/25/2017Anterior mediastinal tumor01/04/2017Pericardial keurkhyt02/25/2017Rheumatoid arthritis 01/04/2017 Encounters DateTypeDepartmentCare DpmjPzvwvqvyufl13/02/7948Ptrcaj32/24/2025Travelfrom Last 3 Months Immunizations ImmunizationAdministration DatesNext DueCOVID-19, mRNA, LNP-S, PF, 100mcg/0.5mL Dose07/01/2020,06/03/2020Influenza (IM) Preservative Free01/12/2016Influenza, Im Trivalent Plsjxzijtgqh12/22/2015,12/31/2010Influenza, Injectable, Mdck, Preservative Free, Quad12/30/2017Influenza, Injectable, quadrivalent (PF) 01/19/2021,11/28/2018Pneumococcal Conjugate 13-Qsstvt9601/12/2016Pneumococcal Prfvryqknqklng31/03/2017RSV, recombinant, protein subunit RSVpreF, adjuvant reconstituted, 0.5 mL, PF12/26/2022Tdap09/27/2017,12/26/2008 Family History Medical HistoryRelationNameCommentsArthritisMotherCOPDMotherHypertensionMother HIVSisterBreast cancerNeg HxRelationNameStatusCommentsFatherOtherunknown history MotherSister Social History Tobacco UseTypesPacks/DayYears UsedDateSmoking Tobacco: NeverSmokeless Tobacco: NeverAlcohol UseStandard Drinks/WeekCommentsNo0 (1 standard drink = 0.6 oz pure alcohol)[facility] UtilitiesAnswerDate RecordedIn the past 12 months has the [place], gas, oil, or water [employer] threatened to shut off services in your home?No 06/07/2024UDIT-CAnswerDate RecordedQ1: How often do you have a drink containing alcohol?Never06/07/2024Q2: How many drinks containing alcohol do you have on a typical day when you are drinking?Patient does not drink06/07/2024Q3: How often do you have six or more drinks on one occasion?Never06/07/2024PHQ-2AnswerDate RecordedTotal Jjaos33406/07/2024PRAPARE - TransportationAnswerDate RecordedIn the past 12 months, has lack of transportation kept you from medical appointments or from getting medications?No06/07/2024In the past 12 months, has lack of transportation kept you from meetings, work, or from getting things needed for daily living?No06/07/2024Housing InstabilityAnswerDate RecordedAre you worried or concerned that in the next two months you may not have stable housing that you own, rent or stay in as a part of a household?No06/07/2024hildcareAnswer Date YkifkizuGncmwkbluVhcabbq45/12/2019EmploymentAnswerDate RecordedEmployment Pgjvjym6208/22/2018Hunger ScreeningAnswerDate RecordedWithin the past 12 months we worried whether our food would run out before we got money to buy more.Never True06/07/2024Within the past 12 months the food we bought just didn't last and we didn't have money to get more.Never True06/07/2024Purpose - LifeAnswerDate RecordedPurpose and direction in jzxbFvlmobj56/18/2021CommentsNoSex and Gender InformationValueDate RecordedSex Assigned at BirthNot on fileLegal Sex Nzlxax9610/16/2014 12:05 PM EDTGender IdentityNot on fileSexual OrientationNot on file Last Filed Vital Signs Vital SignReadingTime TakenCommentsBlood Ifqzfeqp754/6004 8:36 AM EDT Gzwqs9027 8:36 AM PXMAfflbpymvwr56.4 ??C (97.5 ??F)06/11/2024 8:36 AM EDTRespiratory Aprd7703 5:25 PM EDTOxygen Rmqpipsnvm11%06/11/2024 8:36 AM EDTInhaled Oxygen Concentration--Kfuqna375.5 kg (298 lb 11.6 oz)06/10/2024 1:22 AM OLBFfbpiq800.2 cm (5' 7 )06/07/2024 10:12 AM EDTBody Mass Index46.79 06/07/2024 10:12 AM EDT Plan of Treatment Health MaintenanceDue DateLast DoneCommentsAdult BMI Follow Up Plan09/27/1979 Zoster (Shingles) Vaccine (1 of 2)1980Pap Smear1982COVID-19 Vaccine ( season)/11/2021, 07/01/2020, 06/03/2020Influenza Yifyckp80/11/2020, 11/28/2018, 12/30/2017, Additional history exists Depression Blzottiwk22/dult BMI Maeljisyq56 Tobacco Whkifqjms70/03/2024DTaP,Tdap and Td Vaccines (3 - Td or Tdap) , 12/26/2008RSV ( or age 60+ yrs)Hftreyqdg55/16/2023 Goals GoalPatient Goal TypeAssociated ProblemsRecent ProgressPatient-Stated?Author <enter goal here> Génesis Castro, LORI Note: Evaluation of progress towards goal: progress towards dc Medical Devices Not on file Procedures Procedure NamePriorityDate/TimeAssociated DiagnosisCommentsBASIC METABOLIC PANEL Mbiitzh3102/11/2025 2:28 PM EST Paroxysmal atrial fibrillation (CMS-HCC) COMPREHENSIVE METABOLIC OWXYARnwpwmc06/24/2025 11:35 AM EST Anemia, unspecified 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) IRON AND ZNCFKmialts39/24/2025 11:35 AM EST Anemia, unspecified 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) CBC WITH AUTO GLDGRAWVAPFACwmducy82/24/2025 11:35 AM EST Anemia, unspecified 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) from Last 3 Months Results * (ABNORMAL) Basic Metabolic Panel (02/11/2025 2:28 PM EST)ComponentValueRef RangeTest MethodAnalysis TimePerformed AtPathologist YwasdfxelKAHTQT018007 - 146 mmol/L104/14/2024 6:20 PM [facility] LABORATORYPOTASSIUM 4.03.5 - 5.0 mmol/L104/14/2024 6:20 PM [facility] QDDVLXZH554(H)98 - 109 mmol/L104/14/2024 6:20 PM [facility] LABORATORYCARBON WWIQMQC50(L)22 - 32 mmol/L104/14/2024 6:20 PM [facility] LABORATORYANION KXQ288 - 15 mmol/L104/14/2024 6:20 PM [facility] LABORATORYBLOOD UREA URHJNTBW648 - 27 mg/dL02/11/2025 6:20 PM [facility] LABORATORYCREATININE2.21(H)0.40 - 1.00 mg/dL02/11/2025 6:20 PM [facility] LABORATORYComment:METHOD TRACEABLE TO IDMS RUEHREJJKLHXGQJ7787 - 99 mg/dL02/11/2025 6:20 PM [facility] LABORATORYCALCIUM8.88.5 - 10.5 mg/dL02/11/2025 6:20 PM [facility]ORATORYEGFR Non-Race Bgpemysqa21(L)>=60 ml/min/1.73sq.m104/14/2024 6:20 PM [facility] Comment: Reported eGFR is based on the CKD-EPI 2020 equation that does not use a race coefficient. Specimen (Source)Anatomical Location / LateralityCollection Method / Volume Collection TimeReceived TimeBloodVenous blood / UnknownVenipuncture / Unknown 02/11/2025 2:28 PM EST02/11/2025 2:28 PM EST Narrative Authorizing ProviderResult TypeResult StatusElizabeth E Yana CYLINDER INSPECTOR-CNPLAB BLOOD ORDERABLESFinal ResultPerforming OrganizationAddressCity/State/ZIP Code Phone Number [facility] [address] [place] [address], * (ABNORMAL) CBC auto differential (02/03/2025 11:35 AM EST)ComponentValueRef RangeTest MethodAnalysis TimePerformed AtPathologist SignatureWBC2.2(L)4 - 11 10^9/L104/05/2024 7:10 PM [facility] LABORATORYRBC Count3.67 (L)3.8 - 5.2 10^12/L104/05/2024 7:10 PM [facility] Hemoglobin8.8(L)11.7 - 15.5 g/dL02/03/2025 7:10 PM [facility] JWMQSOPDELKdbzdivuww57.8(L)35 - 47 %02/03/2025 7:10 PM [facility] JEWCNXITUHGBP87(L)80 - 100 fL02/03/2025 7:10 PM [facility] IKRRUEWWCLLGU64.8(L)27 - 34 pg02/03/2025 7:10 PM [facility] PTSSGHIMQTMIQN95.5(L)32 - 36 g/dL02/03/2025 7:10 PM [facility] DEZASRRXKUXES08.7(H)11.5 - 15 %02/03/2025 7:10 PM [facility] LABORATORYPlatelet Teqqo477(L)150 - 450 10^9/L104/05/2024 7:10 PM [facility] JPISQEGGZGAXW79.07 - 12 fL02/03/2025 7:10 PM [facility] LABORATORYMyelocyte %1%02/03/2025 7:10 PM [facility] LABORATORYComment:This is an appended report. These results have been appended to a previously preliminary verified report.Bands %2% 02/03/2025 7:10 PM [facility] LABORATORYComment:This is an appended report. These results have been appended to a previously preliminary verified report.Neutrophils %64%02/03/2025 7:10 PM [facility] LABORATORYComment:This is an appended report. These results have been appended to a previously preliminary verified report.Lymphocytes %22%02/03/2025 7:10 PM [facility] LABORATORYComment:This is an appended report. These results have been appended to a previously preliminary verified report. Monocytes %9%02/03/2025 7:10 PM [facility] LABORATORYComment: This is an appended report. These results have been appended to a previously preliminary verified report.Eosinophils %2%02/03/2025 7:10 PM [facility] LABORATORYComment:This is an appended report. These results have been appended to a previously preliminary verified report.Neutrophils Absolute (M)1.51.5 - 6.6 10^9/L104/05/2024 7:10 PM [facility] LABORATORYComment:This is an appended report. These results have been appended to a previously preliminary verified report.Lymphocytes Absolute0.5(L)1.0 - 3.5 10^9/L104/05/2024 7:10 PM [facility] LABORATORYComment: This is an appended report. These results have been appended to a previously preliminary verified report.Monocytes Absolute0.20.0 - 0.9 10^9/L104/05/2024 7:10 PM [facility] LABORATORYComment:This is an appended report. These results have been appended to a previously preliminary verified report.Eosinophils Absolute0.00.0 - 0.4 10^9/L104/05/2024 7:10 PM [facility] LABORATORYComment:This is an appended report. These results have been appended to a previously preliminary verified report.RBC Morphology Iktwhm3002/03/2025 7:10 PM [facility] LABORATORYComment:This is an appended report. These results have been appended to a previously preliminary verified report.Differential TypeMANUAL SCEZFSJTONOX30/24/2025 7:10 PM [facility] LABORATORYComment:This is an appended report. These results have been appended to a previously preliminary verified report.Specimen (Source)Anatomical Location / LateralityCollection Method / VolumeCollection TimeReceived TimeBloodVenous blood / UnknownVenipuncture / Jphkwyf32/ 11:35 AM EST02/03/2025 11:40 AM EST Narrative Authorizing ProviderResult TypeResult StatusAbigail Chhaya Escalante CYLINDER INSPECTOR-CNPLAB BLOOD ORDERABLESFinal ResultPerforming OrganizationAddressCity/State/ZIP CodePhone Number [facility] [address] [place] [address], * (ABNORMAL) Iron and TIBC (02/03/2025 11:35 AM EST)ComponentValueRef RangeTest MethodAnalysis TimePerformed AtPathologist BodyhytveNQZI78(L)50 - 170 ug/dL 02/03/2025 6:09 PM [facility] LABORATORYIRON NILVEFR404(L)250 - 425 ug/dL02/03/2025 6:09 PM [facility] LABORATORYIRON WDBWHNEQIX3712 - 50 % FBPWHHSAYU94/24/2025 6:09 PM [facility] LABORATORYSpecimen (Source)Anatomical Location / LateralityCollection Method / VolumeCollection TimeReceived TimeBloodVenous blood / UnknownVenipuncture / Djprouo4202/03/2025 11:35 AM EST02/03/2025 11:40 AM EST Narrative Authorizing ProviderResult TypeResult StatusAbigail Chhaya Ava TRAMMELLN-CNPLAB BLOOD ORDERABLESFinal ResultPerforming OrganizationAddressCity/State/ZIP CodePhone Number [facility] [address] [place] [address], * (ABNORMAL) Comprehensive metabolic panel (02/03/2025 11:35 AM EST)Component ValueRef RangeTest MethodAnalysis TimePerformed AtPathologist SignatureSODIUM 431815 - 146 mmol/L104/05/2024 6:09 PM [facility] POTASSIUM4.33.5 - 5.0 mmol/L104/05/2024 6:09 PM [facility] QEVAHDISQFHRLWDSAE63691 - 109 mmol/L104/05/2024 6:09 PM [facility] LABORATORYCARBON ESOTBLK9511 - 32 mmol/L104/05/2024 6:09 PM [facility] LABORATORYANION GAP65 - 15 mmol/L104/05/2024 6:09 PM [facility] LABORATORYBLOOD UREA EBUNEBRP43(H)5 - 27 mg/dL 02/03/2025 6:09 PM [facility] LABORATORYCREATININE2.51(H)0.40 - 1.00 mg/dL02/03/2025 6:09 PM [facility] LABORATORYComment: METHOD TRACEABLE TO IDTN RKCVKYUPMTWYTXV0665 - 99 mg/dL02/03/2025 6:09 PM [facility] LABORATORYCALCIUM9.08.5 - 10.5 mg/dL02/03/2025 6:09 PM [facility] LABORATORYTOTAL PROTEIN6.96.0 - 8.0 g/dL 02/03/2025 6:09 PM [facility] LABORATORYALBUMIN3.33.2 - 5.3 g/dL02/03/2025 6:09 PM [facility] LABORATORYALKALINE STQEBWQZNGH7025 - 130 U/L104/05/2024 6:09 PM [facility] BPFVFHTKGRRFK42<=41 U/L104/05/2024 6:09 PM [facility] LABORATORYALT6<=31 U/L104/05/2024 6:09 PM [facility] LABORATORYBILIRUBIN,TOTAL0.30.3 - 1.2 mg/dL02/03/2025 6:09 PM [facility]ORATORYEGFR Non-Race Vuiutdwgm71(L)>=60 ml/min/1.73sq.m 02/03/2025 6:09 PM [facility]ORATORYComment: Reported eGFR is based on the CKD-EPI 2020 equation that does not use a race coefficient. Specimen (Source)Anatomical Location / LateralityCollection Method / Volume Collection TimeReceived TimeBloodVenous blood / UnknownVenipuncture / Unknown 02/03/2025 11:35 AM EST02/03/2025 11:40 AM EST Narrative Authorizing ProviderResult TypeResult StatusAbigasaud Escalante CYLINDER INSPECTOR-CNPLAB BLOOD ORDERABLESFinal ResultPerforming OrganizationAddressCity/State/ZIP CodePhone Number [facility] [address] [place] [address], [place] [phone] from Last 3 Months Insurance Advance Directives * Full Code (Latest Code Status on File) Date ActivatedDate InactivatedComments06/07/2024 4:53 AM06/11/2024 5:34 PM * Full Code Date ActivatedDate InactivatedComments05/21/2024 10:44 PM05/24/2024 8:02 PM * Full Code Date ActivatedDate VhhisqcmgaiUeurrieo17/9/2019 8:46 AM02/21/2019 7:18 PM Care Teams Team MemberRelationshipSpecialtyStart DateEnd Date Thalia Escalante, CYLINDER INSPECTOR-HARDNESS INSPECTOR [address] [place] [address] PCP - GeneralFamily Rahipnbl27/24/25
[2025-03-06] MEDS: GABAPENTIN 300 MG CAPSULE PO (01:06)
[2025-03-06] MEDS: CLONIDINE HCL 0.1 MG TABLET 0.2 MG PO (01:06)
[2025-03-06 01:28] LABS: Hematocrit 34.4 % (36.0-48.0); Hemoglobin 10.4 g/dL (12.0-16.0); Immature Granulocytes Abs Auto 0.01 10^3/uL (0.00-0.03); Immature Granulocytes Pct Auto 0.2 % (0.0-0.5); Lymphocytes Absolute Auto 0.8 10^3/uL (1.2-3.8); Mean Corpuscular HGB Conc 30.2 g/dL (29.9-35.2); Mean Corpuscular Hemoglobin 24.2 pg (26.7-34.0); Mean Corpuscular Volume 80.2 fL (81.0-99.0); Platelet Count 191 10^3/uL (150-450); Red Blood Count 4.29 10^6/uL (4.20-5.40); White Blood Count 4.4 10^3/uL (4.0-11.0)
[2025-03-06] MEDS: HYDRALAZINE HCL 20 MG/ML VIAL 10 MG IVP (01:59)
[2025-03-06 02:05] LABS: Anion Gap 13.3; Blood Urea Nitrogen 28.0 mg/dL (7.0-18.0); Calcium 9.4 mg/dL (8.5-10.1); Carbon Dioxide 22.8 mmol/L (21.0-32.0); Chloride 110 mmol/L (98-107); Estimated GFR (African America 26 (>=60 mL/min/1.73m^2); Estimated GFR (Non-African Ame 22 (>=60 mL/min/1.73m^2); Glucose 93 mg/dL (74-106); Potassium 4.1 mmol/L (3.5-5.1); Sodium 142 mmol/L (136-145)
== END 2025-03-06 03:20 | disposition home or self-care (01) ==
PROVIDERS: Emergency Provider Internal Medicine
DX: I16.0 Hypertensive urgency (principal); I10 Essential (primary) hypertension; G62.9 Polyneuropathy, unspecified
CPT/HCPCS: 36415; 80048; 84484; 85025; 93005; 96374; 99284; J0360